=== PATIENT | female | born 1990 | race African-American/Black ===

== ENCOUNTER 2016-11-24 09:07 | Emergency (ER) | payer SELFPAY ==
[2016-11-24 09:14] VITALS: BP 109/73
--- NOTE | 2016-11-24 09:45 | ER Document Report ---
ED Neck/Back Problem - General Chief Complaint: Back Pain Stated Complaint: FELL/LOWER BACK PAIN Notes: Patient is complaining of pain in the region of her sacrum since she slipped on wet steps, falling onto her buttocks, this morning. She is able to move her legs and walk, but it's extremely painful to do so. Does not have any neurologic deficits such as bladder or bowel control problems. Denies any other injuries. TRAVEL OUTSIDE OF THE [place] IN LAST 30 DAYS: No - Related Data Allergies/Adverse Reactions: ibuprofen [Ibuprofen] Allergy (Severe, Verified 11/24/16 09:11) Anaphylaxis Penicillins Allergy (Severe, Verified 11/24/16 09:11) Anaphylaxis tramadol [Tramadol] Allergy (Severe, Verified 11/24/16 09:11) Anaphylaxis metoclopramide HCl [From Reglan] Adverse Reaction (Severe, Verified 11/24/16 09: 11) Hives nitrofurantoin macrocrystalline [From Macrobid] Adverse Reaction (Severe, Verified 11/24/16 09:11) Hives prochlorperazine edisylate [From Compazine] Adverse Reaction (Severe, Verified 11/24/16 09:11) Hives prochlorperazine maleate [From Compazine] Adverse Reaction (Severe, Verified 09:11) Hives ceftriaxone sodium [From Rocephin] Adverse Reaction (Intermediate, Verified 09:11) Hives cephalexin monohydrate [From Keflex] Adverse Reaction (Intermediate, Verified 09:11) Hives droperidol [Droperidol] Adverse Reaction (Intermediate, Verified 11/24/16 09:11) Generalized Itching ketorolac tromethamine [From Toradol] Adverse Reaction (Intermediate, Verified 11/24/16 09:11) Generalized rash ondansetron HCl [From Zofran] Adverse Reaction (Intermediate, Verified 11/24/16 09:11) Hives sulfamethoxazole [From Septra] Adverse Reaction (Intermediate, Verified 09:11) Hives trimethoprim [From Septra] Adverse Reaction (Intermediate, Verified 11/24/16 09: 11) Hives Past Medical History - Social History Smoking Status: Former Smoker Chew tobacco use (# tins/day): No Frequency of alcohol use: None Drug Abuse: None Family History: Reviewed & Not Pertinent, Arthritis, CAD, DM, Hyperlipidemia, Hypertension, Malignancy Patient has suicidal ideation: No Patient has homicidal ideation: No Pulmonary Medical History: Reports: Hx Asthma Neurological Medical History: Reports: Hx Migraine Renal/ Medical History: Reports: Hx Kidney Stones, Hx Ovarian Cysts GI Medical History: Reports: Hx Gastroesophageal Reflux Disease - during Musculoskeltal Medical History: Reports Hx Musculoskeletal Trauma Psychiatric Medical History: Reports: Hx Bipolar Disorder, Hx Depression Past Surgical History: Reports: Hx Section - x2, Hx Cholecystectomy - Immunizations Immunizations up to date: Yes Hx Diphtheria, Pertussis, Tetanus Vaccination: Yes - UTD Review of Systems - Review of Systems Constitutional: denies: Fever Cardiovascular: denies: Chest pain Respiratory: denies: Short of breath Gastrointestinal: denies: Abdominal pain Musculoskeletal: See HPI, Back pain - Primarily at the sacrum. Neurological/Psychological: No symptoms reported, See HPI Physical Exam - Vital signs Vitals: Temp Pulse Resp BP Pulse Ox 98.3 F 98 18 109/73 100 11/24/16 09:12 11/24/16 09:12 11/24/16 09:12 11/24/16 09:12 11/24/16 09:12 Interpretation: Normal - Notes Notes: PHYSICAL EXAMINATION: GENERAL: Well-appearing, in no acute distress. Walks bent over some, as if she is having pain. HEAD: Atraumatic, normocephalic. NECK: Normal range of motion, supple. LUNGS: Breath sounds clear and equal bilaterally. HEART: Regular rate and rhythm without murmurs. ABDOMEN: Soft, nontender. No guarding or rebound. BACK: No tenderness throughout entire back. Extremely tender across the region of the sacrum. No visible bruising. EXTREMITIES: Normal range of motion without pain. NEUROLOGICAL: Normal speech. Normal sensory, motor, and reflex exams. Awake, alert, and oriented x3. Cranial nerves normal. PSYCH: Normal mood, normal affect. SKIN: Warm, dry, no rashes. Course - Re-evaluation Re-evalutation: 11/24/16 10:23 Review of patient's visits to this emergency department show that she has been here 26 times in the past 12 months and 15 times in the year 2014. I advised the patient that she is a young healthy individual and should not require this many visits to the emergency department. I advised her that I would not provide her with any controlled substances for pain control now or in the future unless she has an objective emergency medical condition. I told her that would be the policy of this department with regard to her treatment in the future by all of the providers: She would receive an appropriate medical screening examination to rule out an emergency medical condition, but not receive any narcotic pain medications in the future without objective findings to indicate the need for them. - Vital Signs Vital signs: Temp Pulse Resp BP Pulse Ox 98.3 F 98 18 109/73 100 11/24/16 09:12 11/24/16 09:12 11/24/16 09:12 11/24/16 09:12 11/24/16 09:12 - Diagnostic Test Radiology results interpreted by me: 11/24/16 10:10 X-ray of the sacrum and coccyx are normal, no fractures. Discharge - Discharge Clinical Impression: Contusion of sacrum Qualifiers: Encounter type: initial encounter Qualified Code(s): S30.0XXA - Contusion of lower back and pelvis, initial encounter Contusion of coccyx Qualifiers: Encounter type: initial encounter Qualified Code(s): S30.0XXA - Contusion of lower back and pelvis, initial encounter Condition: Stable Disposition: HOME, SELF-CARE Additional Instructions: LOW BACK PAIN: Three out of every four people will have an episode of disabling back pain during their lifetime. Most commonly the pain is due to straining of the muscles and ligaments in the low back. Usual treatment includes: (1) Rest on a firm surface. Avoid lying on your stomach. (2) Ice pack the painful area. After a few days, gentle heat may be used intermittently to relax the area, or ice packs can be continued. (3) Medication may be needed -- muscle relaxers and antiinflammatory medicines are commonly used. (4) As the back improves, exercises are prescribed to strengthen the back and abdominal muscles. Your doctor will advise you on the proper care for your back at each stage in your recovery. You may be better in a few days -- or healing may take several weeks. If new symptoms of a "herniated disc" (radiation of pain, numbness, or tingling down the back of the leg or weakness in the leg) occur, you should be re-examined. Further testing may be necessary. Coccyx Injury Your painful tailbone is due to an injury to the `coccyx', the bone at the end of the spine. While quite painful, this injury isn't serious. In fact, it' s really not important whether the bone is fractured or not -- the treatment is the same. In general, this injury is treated by cold-packing the area and resting for a few days. Once you are active again, you may find that a `donut' seat cushion (often used after delivering a baby) helps you sit more comfortably. Avoid constipation by getting lots of fiber. Expect about three or four weeks before you are painfree. You should call your doctor if the pain becomes severe, or if you fail to improve as expected. ICE PACKS: Apply ice packs frequently against the painful area. Many different schedules are recommended, such as "20 minutes on, 20 minutes off" or "one hour ice, two hours rest." If you need to work, you may need to go longer between ice treatments. You should plan to have the area ice packed AT LEAST one fourth of the time. The ice should be applied over the wrap, tape, or splint, or over a layer of cloth -- not directly against the skin. Some ice bags have a built-in cloth and can be put directly on the skin. WARM PACKS: After approximately two days, apply gentle heat (such as a heating pad or hot water bottle) for about 20 to 30 minutes about every two hours -- at least four times daily. Warmth and elevation will help you make a more rapid recovery , and will ease the pain considerably. Do not use HOT heat, and never apply heat for longer than 30 minutes. The continuous heat can invisibly damage skin and muscles -- even when no burn is seen on the surface. Damaged muscles can make you MORE sore. USE OF ACETAMINOPHEN (Tylenol): Acetaminophen may be taken for pain relief or fever control. It's much safer than aspirin, offering a wider range of "safe" dosages. It is safe during . Some brand names are Tylenol, Panadol, Datril, Anacin 3, Tempra, and Liquiprin. Acetaminophen can be repeated every four hours. The following are maximum recommended dosages: WEIGHT Dose Drops Elixir Chewable( 80mg) (LBS.) drprs=droppers tsp=teaspoon >89 pounds or adults 650 mg to 900 mg Acetaminophen can be repeated every four hours. Maximum dose not to exceed 4000 mg a day. These maximum recommended dosages are slightly higher than the dosages written on the product container, but these dosages are very safe and below the toxic dosage for acetaminophen. FOLLOW-UP CARE: If you have been referred to a physician for follow-up care, call the physician s office for an appointment as you were instructed or within the next two days. If you experience worsening or a significant change in your symptoms, notify the physician immediately or return to the Emergency Department at any time for re-evaluation. Forms: Return to Work
== END 2016-11-24 10:20 | disposition home or self-care (01) ==
LOC: ER 09:07
DX: S30.0XXA Contusion of lower back and pelvis, initial encounter (principal); M54.9 Dorsalgia, unspecified; M54.5 Low back pain; W19.XXXA Unspecified fall, initial encounter; Z87.891 Personal history of nicotine dependence
CPT/HCPCS: 72220; 99283

== ENCOUNTER 2017-03-31 15:29 | Emergency (ER) | payer SELFPAY ==
[2017-03-31] MEDS ORDERED: ONDANSETRON 4 MG TAB.RAPDIS PO ONE (16:10)
[2017-03-31] MEDS ORDERED: PROMETHAZINE HCL 25 MG TABLET PO ONE (16:10)
--- NOTE | 2017-03-31 16:15 | ER Document Report ---
ED Medical Screen (RME) - General Chief Complaint: OB Problem (<20wks) Stated Complaint: ABDOMINAL PAIN Time Seen by Provider: 03/31/17 16:10 Notes: Patient is complaining of pelvic cramping and spotting for the past couple of days. She is done a home test last week and all 3 of them were positive. G3. She has been having nausea and vomiting for about 4 days. Not aware of any fever. UTI symptoms. TRAVEL OUTSIDE OF THE [place] IN LAST 30 DAYS: No - Related Data Allergies/Adverse Reactions: ibuprofen [Ibuprofen] Allergy (Severe, Verified 11/24/16 09:11) Anaphylaxis Penicillins Allergy (Severe, Verified 11/24/16 09:11) Anaphylaxis tramadol [Tramadol] Allergy (Severe, Verified 11/24/16 09:11) Anaphylaxis metoclopramide HCl [From Reglan] Adverse Reaction (Severe, Verified 11/24/16 09: 11) Hives nitrofurantoin macrocrystalline [From Macrobid] Adverse Reaction (Severe, Verified 11/24/16 09:11) Hives prochlorperazine edisylate [From Compazine] Adverse Reaction (Severe, Verified 11/24/16 09:11) Hives prochlorperazine maleate [From Compazine] Adverse Reaction (Severe, Verified 09:11) Hives ceftriaxone sodium [From Rocephin] Adverse Reaction (Intermediate, Verified 09:11) Hives cephalexin monohydrate [From Keflex] Adverse Reaction (Intermediate, Verified 09:11) Hives droperidol [Droperidol] Adverse Reaction (Intermediate, Verified 11/24/16 09:11) Generalized Itching ketorolac tromethamine [From Toradol] Adverse Reaction (Intermediate, Verified 11/24/16 09:11) Generalized rash ondansetron HCl [From Zofran] Adverse Reaction (Intermediate, Verified 11/24/16 09:11) Hives sulfamethoxazole [From Septra] Adverse Reaction (Intermediate, Verified 09:11) Hives trimethoprim [From Septra] Adverse Reaction (Intermediate, Verified 11/24/16 09: 11) Hives Past Medical History Pulmonary Medical History: Reports: Hx Asthma Neurological Medical History: Reports: Hx Migraine Renal/ Medical History: Reports: Hx Kidney Stones, Hx Ovarian Cysts. Denies: Hx Peritoneal Dialysis GI Medical History: Reports: Hx Gastroesophageal Reflux Disease - during Musculoskeltal Medical History: Reports Hx Musculoskeletal Trauma Psychiatric Medical History: Reports: Hx Bipolar Disorder, Hx Depression Past Surgical History: Reports: Hx Section - x2, Hx Cholecystectomy - Immunizations Immunizations up to date: Yes Hx Diphtheria, Pertussis, Tetanus Vaccination: Yes - UTD Physical Exam - Vital signs Vitals: Temp Pulse Resp BP Pulse Ox 99.5 F 77 18 116/49 L 100 03/31/17 15:34 03/31/17 15:34 03/31/17 15:34 03/31/17 15:34 03/31/17 15:34 Course - Vital Signs Vital signs: Temp Pulse Resp BP Pulse Ox 99.5 F 77 18 116/49 L 100 03/31/17 15:34 03/31/17 15:34 03/31/17 15:34 03/31/17 15:34 03/31/17 15:34
[2017-03-31 16:48] LABS: ABSOLUTE EOSINOPHILS # (AUTO) 0.3 10^3/uL (0.0-0.6); ABSOLUTE LYMPHOCYTES (AUTO) 1.5 10^3/uL (0.5-4.7); ABSOLUTE MONOCYTES (AUTO) 0.4 10^3/uL (0.1-1.4); ABSOLUTE NEUT (AUTO) 3.1 10^3/uL (1.7-8.2); BASOPHILS % (AUTO) 0.9 % (0-2); EOSINOPHILS % (AUTO) 6.3 % (0-6); HEMATOCRIT 33.1 % (36.0-47.0); HEMOGLOBIN 10.5 g/dL (12.0-15.5); HGB HCT DIFFERENCE -1.6; LYMPHOCYTES % (AUTO) 28.3 % (13-45); MEAN CORPUSCULAR HEMOGLOBIN 22.7 pg (27.0-33.4); MEAN CORPUSCULAR HGB CONC 31.6 g/dL (32.0-36.0); MEAN CORPUSCULAR VOLUME 72 fl (80-97); MONOCYTES % (AUTO) 7.6 % (3-13); RED CELL DISTRIBUTION WIDTH 20.8 % (11.5-14.0); SEGMENTED NEUTROPHILS % (AUTO) 56.9 % (42-78); WHITE BLOOD COUNT 5.4 10^3/uL (4.0-10.5)
--- NOTE | 2017-03-31 17:01 | ER Document Report ---
ED General - General Chief Complaint: OB Problem (<20wks) Stated Complaint: ABDOMINAL PAIN Time Seen by Provider: 03/31/17 16:10 Mode of Arrival: Ambulatory Information source: Patient Notes: 26-year-old female 3 para 2 who has had 3 positive tests at home presents with complaints of vaginal spotting and concerns for . Patient denies any fevers or chills admits to mild nausea. She denies any heavy clotting. Patient notes she was in [place] [facility] up until 6 weeks ago TRAVEL OUTSIDE OF THE [place] IN LAST 30 DAYS: No - HPI Onset: Other Onset/Duration: Sudden Quality of pain: Cramping Severity: Mild Pain Level: 1 Associated symptoms: Other Exacerbated by: Denies Relieved by: Denies Similar symptoms previously: Yes Recently seen / treated by doctor: Yes - Related Data Allergies/Adverse Reactions: ibuprofen [Ibuprofen] Allergy (Severe, Verified 03/31/17 16:18) Anaphylaxis Penicillins Allergy (Severe, Verified 03/31/17 16:18) Anaphylaxis tramadol [Tramadol] Allergy (Severe, Verified 03/31/17 16:18) Anaphylaxis metoclopramide HCl [From Reglan] Adverse Reaction (Severe, Verified 03/31/17 16: 18) Hives nitrofurantoin macrocrystalline [From Macrobid] Adverse Reaction (Severe, Verified 03/31/17 16:18) Hives ceftriaxone sodium [From Rocephin] Adverse Reaction (Intermediate, Verified 01/10 16:18) Hives cephalexin monohydrate [From Keflex] Adverse Reaction (Intermediate, Verified 16:18) Hives droperidol [Droperidol] Adverse Reaction (Intermediate, Verified 03/31/17 16:18) Generalized Itching ketorolac tromethamine [From Toradol] Adverse Reaction (Intermediate, Verified 03/31/17 16:18) Generalized rash ondansetron HCl [From Zofran] Adverse Reaction (Intermediate, Verified 03/31/17 16:18) Hives sulfamethoxazole [From Septra] Adverse Reaction (Intermediate, Verified 16:18) Hives trimethoprim [From Septra] Adverse Reaction (Intermediate, Verified 03/31/17 16: 18) Hives Past Medical History - General Last Menstrual Period: 02/13/17 - Social History Smoking Status: Current Every Day Smoker Cigarette use (# per day): Yes Chew tobacco use (# tins/day): No Smoking Education Provided: Yes - Patient counselled regarding cessation for 4 minutes Frequency of alcohol use: None Drug Abuse: None Family History: Reviewed & Not Pertinent, Arthritis, CAD, DM, Hyperlipidemia, Hypertension, Malignancy Patient has suicidal ideation: No Patient has homicidal ideation: No Pulmonary Medical History: Reports: Hx Asthma Neurological Medical History: Reports: Hx Migraine Renal/ Medical History: Reports: Hx Kidney Stones, Hx Ovarian Cysts. Denies: Hx Peritoneal Dialysis GI Medical History: Reports: Hx Gastroesophageal Reflux Disease - during Musculoskeltal Medical History: Reports Hx Musculoskeletal Trauma Psychiatric Medical History: Reports: Hx Bipolar Disorder, Hx Depression Past Surgical History: Reports: Hx Section - x2, Hx Cholecystectomy - Immunizations Immunizations up to date: Yes Hx Diphtheria, Pertussis, Tetanus Vaccination: Yes - UTD Review of Systems - Review of Systems Notes: REVIEW OF SYSTEMS: CONSTITUTIONAL : Denies fever, chills, or sweats. Denies recent illness. EENT: Denies eye, ear, throat, or mouth pain or symptoms. Denies nasal or sinus congestion or discharge. Denies throat, tongue, or mouth swelling or difficulty swallowing. CARDIOVASCULAR: Denies chest pain. Denies palpitations or racing or irregular heart beat. Denies ankle edema. RESPIRATORY: Denies cough, cold, or chest congestion. Denies shortness of breath, difficulty breathing, or wheezing. GASTROINTESTINAL: Denies abdominal pain or distention. Denies nausea, vomiting , or diarrhea. Denies blood in vomitus, stools, or per rectum. Denies black, tarry stools. Denies constipation. GENITOURINARY: Denies difficulty urinating, painful urination, burning, frequency, blood in urine, or discharge. FEMALE GENITOURINARY: Admits to vaginal spotting MUSCULOSKELETAL: Denies back or neck pain or stiffness. Denies joint pain or swelling. SKIN: Denies rash, lesions or sores. HEMATOLOGIC : Denies easy bruising or bleeding. LYMPHATIC: Denies swollen, enlarged glands. NEUROLOGICAL: Denies confusion or altered mental status. Denies passing out or loss of consciousness. Denies dizziness or lightheadedness. Denies headache. Denies weakness or paralysis or loss of use of either side. Denies problems with gait or speech. Denies sensory loss, numbness, or tingling. Denies seizures. PSYCHIATRIC: Denies anxiety or stress. Denies depression, suicidal ideation, or homicidal ideation. ALL OTHER SYSTEMS REVIEWED AND NEGATIVE. PHYSICAL EXAMINATION: GENERAL: Well-appearing, well-nourished and in no acute distress. HEAD: Atraumatic, normocephalic. EYES: Pupils equal round and reactive to light, extraocular movements intact, conjunctiva are normal. ENT: Nares patent, oropharynx clear without exudates. Moist mucous membranes. NECK: Normal range of motion, supple without lymphadenopathy LUNGS: Breath sounds clear to auscultation bilaterally and equal. No wheezes rales or rhonchi. HEART: Regular rate and rhythm without murmurs ABDOMEN: Soft, nontender, nondistended abdomen. No guarding, no rebound. No masses appreciated. Female : deferred Musculoskeletal: Normal range of motion, no pitting or edema. No cyanosis. NEUROLOGICAL: Cranial nerves grossly intact. Normal speech, normal gait. Normal sensory, motor exams PSYCH: Normal mood, normal affect. SKIN: Warm, Dry, normal turgor, no rashes or lesions noted. Dictation was performed using [employer] voice recognition software Physical Exam - Vital signs Vitals: Temp Pulse Resp BP Pulse Ox 99.5 F 77 18 116/49 L 100 03/31/17 15:34 03/31/17 15:34 03/31/17 15:34 03/31/17 15:34 03/31/17 15:34 Course - Re-evaluation Re-evalutation: 03/31/17 17:35 Physical examination noted no significant abnormality, lab work appears normal at this time. Patient otherwise looks well and appears to want confirmation of her . Report was handed to the patient she will be started on prenatals. Patient otherwise in no distress has been given smoking cessation instructions After performing a Medical Screening Examination, I estimate there is LOW risk for ACUTE APPENDICITIS, BOWEL OBSTRUCTION, ACUTE CHOLECYSTITIS, PERFORATED DIVERTICULITIS, INCARCERATED HERNIA, PANCREATITIS, PELVIC INFLAMMATORY DISEASE, PERFORATED ULCER, ECTOPIC , or TUBO-OVARIAN ABSCESS, thus I consider the discharge disposition reasonable. Also, there is no evidence or peritonitis , sepsis, or toxicity. I have reevaluated this patient multiple times and no significant life threatening changes are noted. The patient and I have discussed the diagnosis and risks, and we agree with discharging home with close follow-up with the understanding that symptoms and presentations can change. We also discussed returning to the Emergency Department immediately if new or worsening symptoms occur. We have discussed the symptoms which are most concerning (e.g., bloody stool, fever, changing or worsening pain, vomiting) that necessitate immediate return. - Vital Signs Vital signs: Temp Pulse Resp BP Pulse Ox 99.5 F 77 18 116/49 L 100 03/31/17 15:34 03/31/17 15:34 03/31/17 15:34 03/31/17 15:34 03/31/17 15:34 - Laboratory Result Diagrams: 03/31/17 16:28 Laboratory results interpreted by me: 03/31/17 16:28 Hgb 10.5 L Hct 33.1 L MCV 72 L MCH 22.7 L MCHC 31.6 L RDW 20.8 H Eosinophils % 6.3 H - Diagnostic Test Radiology reviewed: Image reviewed, Reports reviewed - 6 week Discharge - Discharge Clinical Impression: Encounter for smoking cessation counseling Qualifiers: Weeks of gestation: 24 weeks Qualified Code(s): Z3A.24 - 24 weeks gestation of Condition: Stable Disposition: HOME, SELF-CARE Instructions: Bleeding During Early ([facility]) Prescriptions: Pnv No.122/Iron/Folic Acid [ Multi Tablet] 1 each PO DAILY #30 tablet Referrals: BAKARI GREER MD [Primary Care Provider] - Follow up tomorrow
--- NOTE | 2017-03-31 17:25 | RADIOLOGY REPORT (SQ) ---
EXAM DESCRIPTION: U/S OB TRANSVAGINAL W/O DOP COMPLETED DATE/TIME: 03/31/2017 5:03 pm REASON FOR STUDY: Pelvic cramp, spotting 2 days, pos preg test x 3 COMPARISON: None. TECHNIQUE: Transvaginal static and realtime grayscale images acquired of the pelvis. Additional donato cted spectral and color Doppler images recorded. All images stored on PACs. bHCG: Not available. LIMITATIONS: Body habitus FINDINGS: FETUS: Living intrauterine . EGA: 6 weeks, 0 days EDSON: 11/24/2017 FHR: 101 beats per minute. SUBCHORIONIC BLEED: No. SIZE OF BLEED: Not applicable. UTERUS: No masses. No anomalies. CERVICAL LENGTH: 3.5 cm Closed. RIGHT ADNEXA: Ovary not identified. No adnexal free fluid. No adnexal masses. LEFT ADNEXA: Normal ovary with normal vascular flow. No adnexal free fluid. No adnexal masses. FREE FLUID: None. OTHER: No other significant finding. IMPRESSION: LIVING INTRAUTERINE . EGA 6 weeks, 0 days Trimester of : First - 0 to 13 weeks. TECHNICAL DOCUMENTATION: JOB ID: [id number] [employer]- All Rights Reserved
[2017-03-31 17:47] VITALS: BP 114/56
== END 2017-03-31 17:45 | disposition home or self-care (01) ==
LOC: ER 15:29
DX: R10.9 Unspecified abdominal pain (principal); R11.0 Nausea; Z3A.24 24 weeks gestation of pregnancy; F17.210 Nicotine dependence, cigarettes, uncomplicated
CPT/HCPCS: 36415; 76817; 84702; 85025; 86900; 86901; 99284; 99406

== ENCOUNTER 2017-04-10 16:21 | Emergency (ER) | payer SELFPAY ==
[2017-04-10 16:43] VITALS: BP 113/50
== END 2017-04-10 18:15 | disposition left against medical advice (07) ==
LOC: ER 16:21
DX: Z53.21 Procedure and treatment not carried out due to patient leaving prior to being seen by health care provider (principal)

== ENCOUNTER 2017-04-14 05:46 | Emergency (ER) | payer SELFPAY ==
[2017-04-14 05:58] VITALS: BP 134/77
[2017-04-14] MEDS ORDERED: ACETAMINOPHEN 325 MG TABLET PO ONE (06:24)
[2017-04-14] MEDS ORDERED: ONDANSETRON HCL INJ/PF 4 MG/2 ML SDV IV ONE (06:28)
--- NOTE | 2017-04-14 06:28 | ER Document Report ---
ED General - General Chief Complaint: Abdominal Pain Stated Complaint: ABDOMINAL PAIN Time Seen by Provider: 04/14/17 06:07 Mode of Arrival: Ambulatory Information source: Patient Notes: 26-year-old female history of narcotic abuse who was diagnosed with threatened miscarriage by myself approximately 2 weeks ago states that she was seen at [facility] a few days after that due to vaginal bleeding and was having a miscarriage complete. Patient notes she has had abdominal cramping since TRAVEL OUTSIDE OF THE [place] IN LAST 30 DAYS: No - HPI Onset: Other Onset/Duration: Persistent Quality of pain: Achy Severity: Mild Pain Level: 1 Associated symptoms: Nausea, Vomiting Exacerbated by: Denies Relieved by: Denies Similar symptoms previously: Yes Recently seen / treated by doctor: Yes - Related Data Allergies/Adverse Reactions: ibuprofen [Ibuprofen] Allergy (Severe, Verified 04/14/17 05:52) Anaphylaxis Penicillins Allergy (Severe, Verified 04/14/17 05:52) Anaphylaxis tramadol [Tramadol] Allergy (Severe, Verified 04/14/17 05:52) Anaphylaxis metoclopramide HCl [From Reglan] Adverse Reaction (Severe, Verified 04/14/17 05: 52) Hives nitrofurantoin macrocrystalline [From Macrobid] Adverse Reaction (Severe, Verified 04/14/17 05:52) Hives ceftriaxone sodium [From Rocephin] Adverse Reaction (Intermediate, Verified 05:52) Hives cephalexin monohydrate [From Keflex] Adverse Reaction (Intermediate, Verified 05:52) Hives droperidol [Droperidol] Adverse Reaction (Intermediate, Verified 04/14/17 05:52) Generalized Itching ketorolac tromethamine [From Toradol] Adverse Reaction (Intermediate, Verified 04/14/17 05:52) Generalized rash ondansetron HCl [From Zofran] Adverse Reaction (Intermediate, Verified 04/14/17 05:52) Hives sulfamethoxazole [From Septra] Adverse Reaction (Intermediate, Verified 05:52) Hives trimethoprim [From Septra] Adverse Reaction (Intermediate, Verified 04/14/17 05: 52) Hives Past Medical History - Social History Smoking Status: Current Every Day Smoker Cigarette use (# per day): Yes Chew tobacco use (# tins/day): No Smoking Education Provided: No Family History: Reviewed & Not Pertinent, Arthritis, CAD, DM, Hyperlipidemia, Hypertension, Malignancy Pulmonary Medical History: Reports: Hx Asthma Neurological Medical History: Reports: Hx Migraine Renal/ Medical History: Reports: Hx Kidney Stones, Hx Ovarian Cysts. Denies: Hx Peritoneal Dialysis GI Medical History: Reports: Hx Gastroesophageal Reflux Disease - during Musculoskeltal Medical History: Reports Hx Musculoskeletal Trauma Psychiatric Medical History: Reports: Hx Bipolar Disorder, Hx Depression Past Surgical History: Reports: Hx Section - x2, Hx Cholecystectomy - Immunizations Immunizations up to date: Yes Hx Diphtheria, Pertussis, Tetanus Vaccination: Yes - UTD Review of Systems - Review of Systems Notes: REVIEW OF SYSTEMS: CONSTITUTIONAL : Denies fever, chills, or sweats. Denies recent illness. EENT: Denies eye, ear, throat, or mouth pain or symptoms. Denies nasal or sinus congestion or discharge. Denies throat, tongue, or mouth swelling or difficulty swallowing. CARDIOVASCULAR: Denies chest pain. Denies palpitations or racing or irregular heart beat. Denies ankle edema. RESPIRATORY: Denies cough, cold, or chest congestion. Denies shortness of breath, difficulty breathing, or wheezing. GASTROINTESTINAL: admits to abd pain GENITOURINARY: Denies difficulty urinating, painful urination, burning, frequency, blood in urine, or discharge. FEMALE GENITOURINARY: denies any more vag bleeding at this time MUSCULOSKELETAL: Denies back or neck pain or stiffness. Denies joint pain or swelling. SKIN: Denies rash, lesions or sores. HEMATOLOGIC : Denies easy bruising or bleeding. LYMPHATIC: Denies swollen, enlarged glands. NEUROLOGICAL: Denies confusion or altered mental status. Denies passing out or loss of consciousness. Denies dizziness or lightheadedness. Denies headache. Denies weakness or paralysis or loss of use of either side. Denies problems with gait or speech. Denies sensory loss, numbness, or tingling. Denies seizures. PSYCHIATRIC: Denies anxiety or stress. Denies depression, suicidal ideation, or homicidal ideation. ALL OTHER SYSTEMS REVIEWED AND NEGATIVE. PHYSICAL EXAMINATION: GENERAL: Well-appearing, well-nourished and in no acute distress. HEAD: Atraumatic, normocephalic. EYES: Pupils equal round and reactive to light, extraocular movements intact, conjunctiva are normal. ENT: Nares patent, oropharynx clear without exudates. Moist mucous membranes. NECK: Normal range of motion, supple without lymphadenopathy LUNGS: Breath sounds clear to auscultation bilaterally and equal. No wheezes rales or rhonchi. HEART: Regular rate and rhythm without murmurs ABDOMEN: Soft, nontender, nondistended abdomen. No guarding, no rebound. No masses appreciated. Female : deferred Musculoskeletal: Normal range of motion, no pitting or edema. No cyanosis. NEUROLOGICAL: Cranial nerves grossly intact. Normal speech, normal gait. Normal sensory, motor exams PSYCH: Normal mood, normal affect. SKIN: Warm, Dry, normal turgor, no rashes or lesions noted. Dictation was performed using [employer] voice recognition software Physical Exam - Vital signs Vitals: Temp Pulse Resp BP Pulse Ox 98.9 F 96 20 134/77 H 99 04/14/17 05:52 04/14/17 05:52 04/14/17 05:52 04/14/17 05:52 04/14/17 05:52 Course - Re-evaluation Re-evalutation: 04/14/17 06:31 It is noted the patient had left without being seen a few days prior, after her father had dropped her off she had left and he returned looking for her stating that she was violating her probation by doing so Lab work imaging are pending at this time 04/14/17 07:23 Patient refuses all care, she demands her IV be taken out, refuses to go to ultrasound After performing a Medical Screening Examination, I spoke with the patient at length in regards to leaving the hospital against medical advice. I do not believe the patient should leave but the patient is alert oriented x4, understands the risks and benefits of staying and leaving including disability and . Pt understands that she can return at any time for further care and is more than welcome to do so. Pt verbalizes this understanding. - Vital Signs Vital signs: Temp Pulse Resp BP Pulse Ox 98.9 F 96 20 134/77 H 99 04/14/17 05:52 04/14/17 05:52 04/14/17 05:52 04/14/17 05:52 04/14/17 05:52 - Laboratory Result Diagrams: 04/14/17 06:25 04/14/17 06:25 Laboratory results interpreted by me: 04/14/17 06:25 WBC 11.6 H Hgb 10.3 L Hct 32.5 L MCV 72 L MCH 22.8 L MCHC 31.6 L RDW 19.8 H Absolute Neutrophils 8.8 H Discharge - Discharge Clinical Impression: Abdominal pain Qualifiers: Abdominal location: generalized Qualified Code(s): R10.84 - Generalized abdominal pain Disposition: AGAINST MEDICAL ADVICE Instructions: Abdominal Pain ([facility]) Additional Instructions: Follow up with your physician tomorrow for further care or return to the ED IMMEDIATELY if symptoms worsen or new concerns occur. If you cannot afford to follow up with your primary care physician a list of low cost clinics have been provided at the end of your discharge papers as well.
[2017-04-14 07:00] LABS: ABSOLUTE BASOPHILS # (AUTO) 0.1 10^3/uL (0.0-0.2); ABSOLUTE EOSINOPHILS # (AUTO) 0.4 10^3/uL (0.0-0.6); ABSOLUTE LYMPHOCYTES (AUTO) 1.8 10^3/uL (0.5-4.7); ABSOLUTE MONOCYTES (AUTO) 0.5 10^3/uL (0.1-1.4); ABSOLUTE NEUT (AUTO) 8.8 10^3/uL (1.7-8.2); BASOPHILS % (AUTO) 0.7 % (0-2); EOSINOPHILS % (AUTO) 3.5 % (0-6); HEMATOCRIT 32.5 % (36.0-47.0); HEMOGLOBIN 10.3 g/dL (12.0-15.5); HGB HCT DIFFERENCE -1.6; LYMPHOCYTES % (AUTO) 15.6 % (13-45); MEAN CORPUSCULAR HEMOGLOBIN 22.8 pg (27.0-33.4); MEAN CORPUSCULAR HGB CONC 31.6 g/dL (32.0-36.0); MEAN CORPUSCULAR VOLUME 72 fl (80-97); MONOCYTES % (AUTO) 4.2 % (3-13); RED BLOOD COUNT 4.51 10^6/uL (3.72-5.28); RED CELL DISTRIBUTION WIDTH 19.8 % (11.5-14.0); WHITE BLOOD COUNT 11.6 10^3/uL (4.0-10.5)
[2017-04-14] MEDS ORDERED: PROMETHAZINE HCL 25 MG TABLET PO ONE (07:02)
[2017-04-14 07:17] LABS: APPEARANCE,URINE SLIGHTLY-CLOUDY; BILIRUBIN,URINE NEGATIVE (NEGATIVE); GLUCOSE, URINE NEGATIVE (NEGATIVE); KETONES,URINE NEGATIVE (NEGATIVE); LEUKOCYTE ESTERASE,URINE NEGATIVE (NEGATIVE); NITRITE,URINE NEGATIVE (NEGATIVE); PROTEIN,URINE NEGATIVE (NEGATIVE); URINE SPECIFIC GRAVITY 1.031; UROBILINOGEN,URINE NEGATIVE mg/dL (<2.0)
[2017-04-14 07:26] LABS: URINE BARBITURATES SCREEN NEGATIVE; URINE METHADONE SCREEN NEGATIVE; URINE OPIATES LOW NEGATIVE; URINE PHENCYCLIDINE SCREEN NEGATIVE
== END 2017-04-14 07:28 | disposition left against medical advice (07) ==
LOC: ER 05:46
DX: O46.91 Antepartum hemorrhage, unspecified, first trimester (principal); O21.0 Mild hyperemesis gravidarum; Z3A.09 9 weeks gestation of pregnancy
CPT/HCPCS: 36415; 80307; 81001; 85025; 99284

== ENCOUNTER 2017-04-15 16:57 | Emergency (ER) | payer SELFPAY ==
[2017-04-15 17:11] VITALS: BP 116/53
[2017-04-15] MEDS ORDERED: DEXTROSE 5%-NORMAL SALINE 1,000 ML IV ONE (17:37)
[2017-04-15] MEDS ORDERED: PROMETHAZINE HCL 25 MG TABLET PO ONE (17:37)
[2017-04-15] MEDS ORDERED: PROMETHAZINE HCL 25 MG SUPP.RECT PR ONE (18:03)
[2017-04-15] MEDS ORDERED: DIPHENHYDRAMINE HCL 50 MG/ML VIAL IV ONE (18:03)
[2017-04-15 18:05] LABS: ABSOLUTE EOSINOPHILS # (AUTO) 0.5 10^3/uL (0.0-0.6); ABSOLUTE LYMPHOCYTES (AUTO) 1.8 10^3/uL (0.5-4.7); ABSOLUTE MONOCYTES (AUTO) 0.5 10^3/uL (0.1-1.4); ABSOLUTE NEUT (AUTO) 3.8 10^3/uL (1.7-8.2); BASOPHILS % (AUTO) 0.5 % (0-2); EOSINOPHILS % (AUTO) 7.8 % (0-6); HEMATOCRIT 32.8 % (36.0-47.0); HEMOGLOBIN 10.4 g/dL (12.0-15.5); HGB HCT DIFFERENCE -1.6; LYMPHOCYTES % (AUTO) 27.6 % (13-45); MEAN CORPUSCULAR HEMOGLOBIN 23.2 pg (27.0-33.4); MEAN CORPUSCULAR HGB CONC 31.7 g/dL (32.0-36.0); MEAN CORPUSCULAR VOLUME 73 fl (80-97); MONOCYTES % (AUTO) 7.3 % (3-13); RED BLOOD COUNT 4.48 10^6/uL (3.72-5.28); RED CELL DISTRIBUTION WIDTH 20.4 % (11.5-14.0); SEGMENTED NEUTROPHILS % (AUTO) 56.8 % (42-78); WHITE BLOOD COUNT 6.7 10^3/uL (4.0-10.5)
[2017-04-15 18:13] LABS: ANION GAP 9 (5-19); BLOOD UREA NITROGEN 9 mg/dL (7-20); CALCIUM 9.3 mg/dL (8.4-10.2); CARBON DIOXIDE 24 mmol/L (22-30); CHLORIDE 103 mmol/L (98-107); CREATININE RESULT 0.63 mg/dL (0.52-1.25); GLUCOSE 88 mg/dL (75-110); POTASSIUM 3.4 mmol/L (3.6-5.0); SODIUM 135.7 mmol/L (137-145)
--- NOTE | 2017-04-15 19:32 | ER Document Report ---
ED General - General Chief Complaint: Abdominal Pain Stated Complaint: ABDOMINAL PAIN Time Seen by Provider: 04/15/17 17:34 Mode of Arrival: Ambulatory Information source: Patient Notes: 26-year-old female with a history of substance abuse who is in her first trimester that has been experiencing vaginal bleeding and cramping with a recent ultrasound showing an intrauterine . Patient reports being evaluated at [facility] for miscarriage. Patient presents to the emergency room today complaining of nausea, vomiting and abdominal cramping. Patient states that she is allergic to both Reglan and Zofran. TRAVEL OUTSIDE OF THE [place] IN LAST 30 DAYS: No - HPI Onset: Last week Onset/Duration: Gradual Quality of pain: Dull Severity: Severe Pain Level: 5 Associated symptoms: Nausea, Vomiting. denies: Fever Exacerbated by: Denies Relieved by: Denies Similar symptoms previously: Yes Recently seen / treated by doctor: Yes - Related Data Allergies/Adverse Reactions: ibuprofen [Ibuprofen] Allergy (Severe, Verified 04/15/17 17:23) Anaphylaxis Penicillins Allergy (Severe, Verified 04/15/17 17:23) Anaphylaxis tramadol [Tramadol] Allergy (Severe, Verified 04/15/17 17:23) Anaphylaxis metoclopramide HCl [From Reglan] Adverse Reaction (Severe, Verified 04/15/17 17: 23) Hives nitrofurantoin macrocrystalline [From Macrobid] Adverse Reaction (Severe, Verified 04/15/17 17:23) Hives ceftriaxone sodium [From Rocephin] Adverse Reaction (Intermediate, Verified 17:23) Hives cephalexin monohydrate [From Keflex] Adverse Reaction (Intermediate, Verified 17:23) Hives droperidol [Droperidol] Adverse Reaction (Intermediate, Verified 04/15/17 17:23) Generalized Itching ketorolac tromethamine [From Toradol] Adverse Reaction (Intermediate, Verified 04/15/17 17:23) Generalized rash ondansetron HCl [From Zofran] Adverse Reaction (Intermediate, Verified 04/15/17 17:23) Hives sulfamethoxazole [From Septra] Adverse Reaction (Intermediate, Verified 17:23) Hives trimethoprim [From Septra] Adverse Reaction (Intermediate, Verified 04/15/17 17: 23) Hives Past Medical History - General Information source: Patient - Social History Smoking Status: Current Every Day Smoker Cigarette use (# per day): Yes Chew tobacco use (# tins/day): No Frequency of alcohol use: Occasional Drug Abuse: Other Lives with: Family Family History: Reviewed & Not Pertinent, Arthritis, CAD, DM, Hyperlipidemia, Hypertension, Malignancy Patient has suicidal ideation: No Patient has homicidal ideation: No Pulmonary Medical History: Reports: Hx Asthma Neurological Medical History: Reports: Hx Migraine Renal/ Medical History: Reports: Hx Kidney Stones, Hx Ovarian Cysts. Denies: Hx Peritoneal Dialysis GI Medical History: Reports: Hx Gastroesophageal Reflux Disease - during Musculoskeltal Medical History: Reports Hx Musculoskeletal Trauma Psychiatric Medical History: Reports: Hx Bipolar Disorder, Hx Depression Past Surgical History: Reports: Hx Section - x2, Hx Cholecystectomy - Immunizations Immunizations up to date: Yes Hx Diphtheria, Pertussis, Tetanus Vaccination: Yes - UTD Review of Systems - Review of Systems Constitutional: denies: Chills, Fever EENT: No symptoms reported Cardiovascular: No symptoms reported Respiratory: No symptoms reported Gastrointestinal: See HPI Genitourinary: See HPI Female Genitourinary: See HPI Musculoskeletal: No symptoms reported Skin: No symptoms reported Hematologic/Lymphatic: No symptoms reported Neurological/Psychological: No symptoms reported Physical Exam - Vital signs Vitals: Temp Pulse Resp BP Pulse Ox 99.1 F 78 20 116/53 L 99 04/15/17 17:09 04/15/17 17:09 04/15/17 17:09 04/15/17 17:09 04/15/17 17:09 Notes: Physical exam: GENERAL: 26-year-old female, alert and oriented 3, complaining of pain. HEAD: Atraumatic, normocephalic. EYES: Pupils equal round and reactive to light, cteric, conjunctiva are normal. ENT: Moist mucous membranes. NECK: Normal range of motion, supple LUNGS: Breath sounds clear to auscultation bilaterally and equal. No wheezes rales or rhonchi. HEART: Regular rate and rhythm without murmurs, rubs or gallops. ABDOMEN: Soft, normoactive bowel sounds. Patient refuses pelvic exam. EXTREMITIES: Normal range of motion, no pitting or edema. No clubbing or cyanosis. NEUROLOGICAL: Cranial nerves II through XII grossly intact. Normal speech, normal gait. PSYCH: Normal mood, normal affect. SKIN: Warm, Dry, normal turgor, no rashes or lesions noted. Course - Re-evaluation Re-evalutation: 04/15/17 19:40 The patient is refusing the ultrasound because she wants her something for pain first. I have offered Tylenol for the pain but she said it is not enough. I have explained to her in that we do not give anything stronger (i.e. narcotics). Patient states she absolutely refuses the ultrasound. Patient was not that cooperative for the physical exam either. For the nausea and vomiting I did give the patient IV fluids, IV Benadryl. I did explain to her that we do not give IV Phenergan or IM Phenergan anymore because of damage to the tissue and that we could give that medicine orally or suppository (she refuses). The patient is allergic to Reglan and Zofran and states she gets hives from both. 04/15/17 19:42 04/15/17 19:45 I reviewed the ultrasound from March 31 and there was evidence of an intrauterine . Patient's blood type is Rh+. 04/15/17 19:46 Review of the beta quant shows that the level is actually increased since the last time was here suggesting continued viability. It is impossible to know for sure without an ultrasound which the patient is continued to refuse. 04/16/17 00:30 Patient ultimately left against advice and walked out of the ER. She was not willing to have any further workup without narcotics. 04/16/17 00:31 - Vital Signs Vital signs: Temp Pulse Resp BP Pulse Ox 99.1 F 78 20 116/53 L 99 04/15/17 17:09 04/15/17 17:09 04/15/17 17:09 04/15/17 17:09 04/15/17 17:09 - Laboratory Result Diagrams: 04/15/17 17:50 04/15/17 17:50 Laboratory results interpreted by me: 04/15/17 04/15/17 17:50 17:50 Hgb 10.4 L Hct 32.8 L MCV 73 L MCH 23.2 L MCHC 31.7 L RDW 20.4 H Eosinophils % 7.8 H Sodium 135.7 L Potassium 3.4 L Beta HCG, Quant 836077.00 H Discharge - Discharge Clinical Impression: Early , Vomiting with nausea, Vaginal bleeding Condition: Stable Disposition: AGAINST MEDICAL ADVICE
== END 2017-04-15 19:45 | disposition left against medical advice (07) ==
LOC: ER 16:57
DX: O21.9 Vomiting of pregnancy, unspecified (principal); O26.891 Other specified pregnancy related conditions, first trimester; R10.9 Unspecified abdominal pain; O20.9 Hemorrhage in early pregnancy, unspecified; O99.331 Smoking (tobacco) complicating pregnancy, first trimester; F17.210 Nicotine dependence, cigarettes, uncomplicated; O99.511 Diseases of the respiratory system complicating pregnancy, first trimester; J45.909 Unspecified asthma, uncomplicated; Z3A.00 Weeks of gestation of pregnancy not specified; Z87.442 Personal history of urinary calculi; Z87.42 Personal history of other diseases of the female genital tract; Z87.19 Personal history of other diseases of the digestive system; Z88.8 Allergy status to other drugs, medicaments and biological substances; Z87.892 Personal history of anaphylaxis; Z88.6 Allergy status to analgesic agent; Z88.5 Allergy status to narcotic agent; Z88.0 Allergy status to penicillin; Z53.29 Procedure and treatment not carried out because of patient's decision for other reasons
CPT/HCPCS: 36415; 80048; 84702; 85025; 96374; 99283; J1200

== ENCOUNTER → 2017-05-17 | Outpatient (CLI) | payer OTHER ==
--- NOTE | 2017-05-17 15:26 | RADIOLOGY REPORT (SQ) ---
EXAM DESCRIPTION: U/S [id number] TRNABD 1GES W/ODOP COMPLETED DATE/TIME: 05/17/2017 3:07 pm REASON FOR STUDY: SIZE/DATES COMPARISON: 03/31/2017 TECHNIQUE: Transabdominal static and realtime grayscale images acquired of the pelvis. Additional se lected spectral and color Doppler images recorded. All images stored on PACs. bHCG: Not applicable. LIMITATIONS: None. FINDINGS: FETUS: Living intrauterine . EGA: 13 weeks 0 days EDSON: 11/22/2017 FHR: 158 beats per minute. SUBCHORIONIC BLEED: No. SIZE OF BLEED: Not applicable. UTERUS: No masses or anomalies. 12.1 x 10.6 x 10.9 cm. CERVICAL LENGTH: 4.5 cm. Closed. RIGHT ADNEXA: Ovary not seen. No adnexal free fluid. No adnexal masses. LEFT ADNEXA: Ovary not seen. No adnexal free fluid. No adnexal masses. FREE FLUID: None. OTHER: No other significant finding. IMPRESSION: There is a live intrauterine gestation of 13 weeks 0 days with an estimated date of deli very of 11/22/2017. Trimester of : 1st - 0 to 13 weeks. TECHNICAL DOCUMENTATION: JOB ID: [id number] [employer]- All Rights Reserved
== END ==
LOC: RAD 14:00
PROVIDERS: ATTEND Family Medicine
DX: Z34.91 Encounter for supervision of normal pregnancy, unspecified, first trimester (principal)
CPT/HCPCS: 76801

== ENCOUNTER 2017-06-01 20:40 | Emergency (ER) | payer SELFPAY ==
[2017-06-01] MEDS ORDERED: PROCHLORPERAZINE EDISYLATE INJ 10 MG/2 ML VIAL IV ONE (22:21)
[2017-06-01] MEDS ORDERED: FAMOTIDINE INJ/PF 20 MG/2 ML SDV IV ONE (22:21)
[2017-06-01] MEDS ORDERED: NORMAL SALINE 1000 ML 1,000 ML IV PRN (22:21)
--- NOTE | 2017-06-01 22:23 | ER Document Report ---
ED GI/ - General Chief Complaint: Nausea/Vomiting Stated Complaint: ABDOMINAL PAIN Time Seen by Provider: 06/01/17 22:11 Mode of Arrival: Ambulatory Information source: Patient TRAVEL OUTSIDE OF THE [place] IN LAST 30 DAYS: No - HPI Patient complains to provider of: Dysuria, Pelvic pain, , Vomiting Onset: Other - 2-3 days Timing/Duration: Persistent Quality of pain: Achy Severity at maximum: Moderate Severity in ED: Moderate Pain Level: 3 Location: Pelvis Associated symptoms: Chills, Nausea, Vomiting Notes: 06/01/17 22:22 Patient is a 26-year-old female who is a approximately 15 weeks at this time, being followed by the health department, presents to the emergency room today complaining of nausea and vomiting 2-3 days, with mild crampy lower abdominal pain, and pain in her low back as well, she denies any bleeding or abnormal discharge, no fever although she does have chills at times , no diarrhea, she does report burning sensation with urination, history of 2 previous C-sections due to failure to dilate, and cholecystectomy - Related Data Allergies/Adverse Reactions: ibuprofen [Ibuprofen] Allergy (Severe, Verified 04/15/17 17:23) Anaphylaxis Penicillins Allergy (Severe, Verified 04/15/17 17:23) Anaphylaxis tramadol [Tramadol] Allergy (Severe, Verified 04/15/17 17:23) Anaphylaxis metoclopramide HCl [From Reglan] Adverse Reaction (Severe, Verified 04/15/17 17: 23) Hives nitrofurantoin macrocrystalline [From Macrobid] Adverse Reaction (Severe, Verified 04/15/17 17:23) Hives ceftriaxone sodium [From Rocephin] Adverse Reaction (Intermediate, Verified 17:23) Hives cephalexin monohydrate [From Keflex] Adverse Reaction (Intermediate, Verified 17:23) Hives droperidol [Droperidol] Adverse Reaction (Intermediate, Verified 04/15/17 17:23) Generalized Itching ketorolac tromethamine [From Toradol] Adverse Reaction (Intermediate, Verified 04/15/17 17:23) Generalized rash ondansetron HCl [From Zofran] Adverse Reaction (Intermediate, Verified 04/15/17 17:23) Hives sulfamethoxazole [From Septra] Adverse Reaction (Intermediate, Verified 17:23) Hives trimethoprim [From Septra] Adverse Reaction (Intermediate, Verified 04/15/17 17: 23) Hives prochlorperazine [From Compazine] Adverse Reaction (Verified 06/01/17 22:59) Hives Past Medical History - General Information source: Patient - Social History Smoking Status: Current Every Day Smoker Family History: Reviewed & Not Pertinent, Arthritis, CAD, DM, Hyperlipidemia, Hypertension, Malignancy Patient has suicidal ideation: No Patient has homicidal ideation: No Pulmonary Medical History: Reports: Hx Asthma Neurological Medical History: Reports: Hx Migraine Renal/ Medical History: Reports: Hx Kidney Stones, Hx Ovarian Cysts. Denies: Hx Peritoneal Dialysis GI Medical History: Reports: Hx Gastroesophageal Reflux Disease - during Musculoskeltal Medical History: Reports Hx Musculoskeletal Trauma Psychiatric Medical History: Reports: Hx Bipolar Disorder, Hx Depression Past Surgical History: Reports: Hx Section - x2, Hx Cholecystectomy - Immunizations Immunizations up to date: Yes Hx Diphtheria, Pertussis, Tetanus Vaccination: Yes - UTD Review of Systems - Review of Systems Constitutional: No symptoms reported EENT: No symptoms reported Cardiovascular: No symptoms reported Respiratory: No symptoms reported Gastrointestinal: No symptoms reported Genitourinary: No symptoms reported Female Genitourinary: See HPI Musculoskeletal: No symptoms reported Skin: No symptoms reported Hematologic/Lymphatic: No symptoms reported Neurological/Psychological: No symptoms reported -: Yes All other systems reviewed and negative Physical Exam - Vital signs Vitals: Temp Pulse Resp BP Pulse Ox 98.3 F 96 18 131/76 H 99 06/01/17 21:02 06/01/17 21:02 06/01/17 21:02 06/01/17 21:02 06/01/17 21:02 Interpretation: Normal - General General appearance: Appears well, Alert - HEENT Head: Normocephalic, Atraumatic Eyes: Normal Pupils: PERRL - Respiratory Respiratory status: No respiratory distress Chest status: Nontender Breath sounds: Normal Chest palpation: Normal - Cardiovascular Rhythm: Regular Heart sounds: Normal auscultation Murmur: No - Abdominal Inspection: Normal Distension: No distension Bowel sounds: Normal Tenderness: Tender - Tenderness to palpate in suprapubic region, specifically over patient's scar Organomegaly: No organomegaly - Back Back: Normal, Nontender - Extremities General upper extremity: Normal inspection, Nontender, Normal color, Normal ROM , Normal temperature General lower extremity: Normal inspection, Nontender, Normal color, Normal ROM , Normal temperature, Normal weight bearing, Other - Law enforcement ankle bracelet noted on the left ankle. No: Chon's sign - Neurological Neuro grossly intact: Yes Cognition: Normal Orientation: AAOx4 Rico Coma Scale Eye Opening: Spontaneous [place] Coma Scale Verbal: Oriented Rico Coma Scale Motor: Obeys Commands [place] Coma Scale Total: 15 Speech: Normal Motor strength normal: LUE, RUE, LLE, RLE Sensory: Normal - Psychological Associated symptoms: Normal affect, Normal mood - Skin Skin Temperature: Warm Skin Moisture: Dry Skin Color: Normal Course - Re-evaluation Re-evalutation: 06/01/17 22:56 Patient has Reglan and Zofran listed as medications that she is allergic to, I ordered Compazine and Pepcid for control of her symptoms, she reported to the nurse that she does not want Pepcid and that she is also allergic to Compazine, she requested Benadryl for nausea, I explained to patient that Benadryl is not an appropriate medication to treat nausea and then I be more than happy to order her something for nausea, when I asked her which medication she can actually take for nausea without negative side effects she reported Phenergan, Phenergan has been ordered for her, although I have not seen any vomiting since she has been in the emergency room 06/01/17 23:22 Patient was offered p.o. Phenergan by the nurse which she also refused, she was then offered [place] Phenergan which she refused once again 06/01/17 23:43 Patient resting comfortably on stretcher, she has been on her cell phone throughout most of her visit, once again I have not seen any vomiting while in the emergency department, she is now asking for saltines and rick ladarius which she is being provided with, bedside ultrasound did confirm positive IUP with positive heart beat and positive movement, patient will be discharged with instructions for follow-up and advised to return if symptoms worsen - Vital Signs Vital signs: Temp Pulse Resp BP Pulse Ox 98.3 F 96 18 131/76 H 99 06/01/17 21:02 06/01/17 21:02 06/01/17 21:02 06/01/17 21:02 06/01/17 21:02 - Laboratory Result Diagrams: 06/01/17 22:26 06/01/17 22:26 Laboratory results interpreted by me: 06/01/17 06/01/17 06/01/17 22:26 22:26 22:28 Hgb 10.4 L Hct 31.4 L MCV 76 L MCH 24.9 L RDW 21.7 H Sodium 136.0 L Potassium 3.4 L Carbon Dioxide 20 L Glucose 71 L Total Protein 6.2 L Albumin 3.4 L Urine Ketones 80 H Urine Urobilinogen 2.0 H Procedures - Ultrasound/Bedside Ultrasound/Bedside Time completed: 23:45 Ultrasound: Other - Pelvic ultrasound reveals positive IUP with good movement and good heart rate Discharge - Discharge Clinical Impression: Qualifiers: Weeks of gestation: 15 weeks Qualified Code(s): Z3A.15 - 15 weeks gestation of Pelvic pain affecting Qualifiers: Trimester: second trimester Qualified Code(s): O26.892 - Other specified related conditions, second trimester; R10.2 - Pelvic and perineal pain ; R10.2 - Pelvic and perineal pain Condition: Stable Disposition: HOME, SELF-CARE Instructions: Antinausea Medication ([facility]), Pelvic Pain in ([facility]), ([facility]) Additional Instructions: Follow up with your primary care provider or CLINICAL UNIT COORDINATOR in one to 2 days. Return to the emergency room immediately if symptoms worsen or any additional concerns. Prescriptions: Promethazine HCl [Phenergan 25 mg Tablet] 25 - 50 mg PO ASDIR PRN #12 tablet PRN Reason: Promethazine HCl [Phenergan 25 mg Supp.rect] 1 supp TX Q6H #12 supp.rect
[2017-06-01] MEDS ORDERED: PROMETHAZINE HCL 25 MG TABLET PO ONE (22:56)
[2017-06-01 22:58] LABS: ALANINE AMINOTRANSFERASE 30 U/L (9-52); ALBUMIN 3.4 g/dL (3.5-5.0); ALKALINE PHOSPHATASE 53 U/L (38-126); ANION GAP 9 (5-19); ASPARTATE AMINO TRANSFERASE 17 U/L (14-36); BILIRUBIN,DIRECT 0.3 mg/dL (0.0-0.4); BILIRUBIN,TOTAL 0.5 mg/dL (0.2-1.3); BLOOD UREA NITROGEN 8 mg/dL (7-20); CALCIUM 8.7 mg/dL (8.4-10.2); CARBON DIOXIDE 20 mmol/L (22-30); CHLORIDE 107 mmol/L (98-107); CREATININE RESULT 0.52 mg/dL (0.52-1.25); GLUCOSE 71 mg/dL (75-110); LIPASE 43.2 U/L (23-300); POTASSIUM 3.4 mmol/L (3.6-5.0); TOTAL PROTEIN 6.2 g/dL (6.3-8.2)
[2017-06-01 23:01] LABS: ABSOLUTE BASOPHILS # (AUTO) 0.1 10^3/uL (0.0-0.2); ABSOLUTE EOSINOPHILS # (AUTO) 0.3 10^3/uL (0.0-0.6); ABSOLUTE LYMPHOCYTES (AUTO) 2.3 10^3/uL (0.5-4.7); ABSOLUTE MONOCYTES (AUTO) 0.5 10^3/uL (0.1-1.4); ABSOLUTE NEUT (AUTO) 5.8 10^3/uL (1.7-8.2); BASOPHILS % (AUTO) 0.7 % (0-2); EOSINOPHILS % (AUTO) 3.4 % (0-6); HEMATOCRIT 31.4 % (36.0-47.0); HEMOGLOBIN 10.4 g/dL (12.0-15.5); HGB HCT DIFFERENCE -0.2; LYMPHOCYTES % (AUTO) 25.3 % (13-45); MEAN CORPUSCULAR HEMOGLOBIN 24.9 pg (27.0-33.4); MEAN CORPUSCULAR HGB CONC 33.1 g/dL (32.0-36.0); MEAN CORPUSCULAR VOLUME 76 fl (80-97); MONOCYTES % (AUTO) 5.5 % (3-13); RED BLOOD COUNT 4.17 10^6/uL (3.72-5.28); RED CELL DISTRIBUTION WIDTH 21.7 % (11.5-14.0); SEGMENTED NEUTROPHILS % (AUTO) 65.1 % (42-78); WHITE BLOOD COUNT 8.9 10^3/uL (4.0-10.5)
[2017-06-01 23:02] LABS: APPEARANCE,URINE SLIGHTLY-CLOUDY; BILIRUBIN,URINE NEGATIVE (NEGATIVE); GLUCOSE, URINE NEGATIVE (NEGATIVE); KETONES,URINE 80 mg/dL (NEGATIVE); LEUKOCYTE ESTERASE,URINE NEGATIVE (NEGATIVE); NITRITE,URINE NEGATIVE (NEGATIVE); PROTEIN,URINE NEGATIVE (NEGATIVE); URINE SPECIFIC GRAVITY 1.029
[2017-06-02 00:06] VITALS: BP 126/74
== END 2017-06-02 00:04 | disposition home or self-care (01) ==
LOC: ER 20:40
DX: O26.892 Other specified pregnancy related conditions, second trimester (principal); R10.2 Pelvic and perineal pain; R11.2 Nausea with vomiting, unspecified; R10.9 Unspecified abdominal pain; R30.0 Dysuria; Z3A.15 15 weeks gestation of pregnancy
CPT/HCPCS: 99283; 96360; 36415; 87086; 83690; 85025; 80053; 81001; J7030; J0780; S0028

== ENCOUNTER 2017-06-11 17:11 | Emergency (ER) | payer MEDICAID ==
[2017-06-11 17:19] VITALS: BP 123/80
[2017-06-11] MEDS ORDERED: PREDNISONE 20 MG TABLET PO ONE (17:31)
[2017-06-11] MEDS ORDERED: DIPHENHYDRAMINE HCL 50 MG CAPSULE PO ONE (17:31)
--- NOTE | 2017-06-11 17:32 | ER Document Report ---
ED Medical Screen (RME) - General Chief Complaint: Allergic Reaction Stated Complaint: POSSIBLE ALLERGIC REACTION Time Seen by Provider: 06/11/17 17:31 Notes: Patient states she has a history of an allergic reaction to fish. She states she ate some chicken cooked and fish crease today and now her throat feels itchy. No significant shortness of breath. No drooling. TRAVEL OUTSIDE OF THE [place] IN LAST 30 DAYS: No - Related Data Allergies/Adverse Reactions: ibuprofen [Ibuprofen] Allergy (Severe, Verified 06/11/17 17:18) Anaphylaxis Penicillins Allergy (Severe, Verified 06/11/17 17:18) Anaphylaxis tramadol [Tramadol] Allergy (Severe, Verified 06/11/17 17:18) Anaphylaxis metoclopramide HCl [From Reglan] Adverse Reaction (Severe, Verified 06/11/17 17: 18) Hives nitrofurantoin macrocrystalline [From Macrobid] Adverse Reaction (Severe, Verified 06/11/17 17:18) Hives ceftriaxone sodium [From Rocephin] Adverse Reaction (Intermediate, Verified 17:18) Hives cephalexin monohydrate [From Keflex] Adverse Reaction (Intermediate, Verified 17:18) Hives droperidol [Droperidol] Adverse Reaction (Intermediate, Verified 06/11/17 17:18) Generalized Itching ketorolac tromethamine [From Toradol] Adverse Reaction (Intermediate, Verified 06/11/17 17:18) Generalized rash ondansetron HCl [From Zofran] Adverse Reaction (Intermediate, Verified 06/11/17 17:18) Hives sulfamethoxazole [From Septra] Adverse Reaction (Intermediate, Verified 17:18) Hives trimethoprim [From Septra] Adverse Reaction (Intermediate, Verified 06/11/17 17: 18) Hives prochlorperazine [From Compazine] Adverse Reaction (Verified 06/11/17 17:18) Hives Past Medical History Pulmonary Medical History: Reports: Hx Asthma Neurological Medical History: Reports: Hx Migraine Renal/ Medical History: Reports: Hx Kidney Stones, Hx Ovarian Cysts. Denies: Hx Peritoneal Dialysis GI Medical History: Reports: Hx Gastroesophageal Reflux Disease - during Musculoskeltal Medical History: Reports Hx Musculoskeletal Trauma Psychiatric Medical History: Reports: Hx Bipolar Disorder, Hx Depression Past Surgical History: Reports: Hx Section - x2, Hx Cholecystectomy - Immunizations Immunizations up to date: Yes Hx Diphtheria, Pertussis, Tetanus Vaccination: Yes - UTD Physical Exam - Vital signs Vitals: Temp Pulse Resp BP Pulse Ox 98.9 F 99 20 123/80 100 06/11/17 17:16 06/11/17 17:16 06/11/17 17:16 06/11/17 17:16 06/11/17 17:16 Course - Vital Signs Vital signs: Temp Pulse Resp BP Pulse Ox 98.9 F 99 20 123/80 100 06/11/17 17:16 06/11/17 17:16 06/11/17 17:16 06/11/17 17:16 06/11/17 17:16
[2017-06-11] MEDS ORDERED: DIPHENHYDRAMINE HCL 50 MG/ML VIAL IM ONE (17:39)
[2017-06-11] MEDS ORDERED: METHYLPREDNISOLONE INJ 125 MG/2 ML SDV IM ONE (17:39)
--- NOTE | 2017-06-11 19:22 | ER Document Report ---
ED Allergic Reaction - General Chief Complaint: Allergic Reaction Stated Complaint: POSSIBLE ALLERGIC REACTION Time Seen by Provider: 06/11/17 17:31 Mode of Arrival: Ambulatory Information source: Patient Notes: Patient states about 30 minutes before arrival she ate chicken that was cooked in fish grease. She states that she has had a previous allergic reaction to fish. She states that she began to feel her throat become "scratchy". She has had no trouble breathing or swallowing. She has not been lightheaded or dizzy. No sweating. She has not taken any medication to combat the allergic reaction. Symptoms have been moderate. They have been constant. Nothing makes them better or worse. She did there is no radiation of the symptoms. TRAVEL OUTSIDE OF THE [place] IN LAST 30 DAYS: No - Related Data Allergies/Adverse Reactions: ibuprofen [Ibuprofen] Allergy (Severe, Verified 06/11/17 17:18) Anaphylaxis Penicillins Allergy (Severe, Verified 06/11/17 17:18) Anaphylaxis tramadol [Tramadol] Allergy (Severe, Verified 06/11/17 17:18) Anaphylaxis metoclopramide HCl [From Reglan] Adverse Reaction (Severe, Verified 06/11/17 17: 18) Hives nitrofurantoin macrocrystalline [From Macrobid] Adverse Reaction (Severe, Verified 06/11/17 17:18) Hives ceftriaxone sodium [From Rocephin] Adverse Reaction (Intermediate, Verified 17:18) Hives cephalexin monohydrate [From Keflex] Adverse Reaction (Intermediate, Verified 17:18) Hives droperidol [Droperidol] Adverse Reaction (Intermediate, Verified 06/11/17 17:18) Generalized Itching ketorolac tromethamine [From Toradol] Adverse Reaction (Intermediate, Verified 06/11/17 17:18) Generalized rash ondansetron HCl [From Zofran] Adverse Reaction (Intermediate, Verified 06/11/17 17:18) Hives sulfamethoxazole [From Septra] Adverse Reaction (Intermediate, Verified 17:18) Hives trimethoprim [From Septra] Adverse Reaction (Intermediate, Verified 06/11/17 17: 18) Hives prochlorperazine [From Compazine] Adverse Reaction (Verified 06/11/17 17:18) Hives Past Medical History - General Information source: Patient - Social History Smoking Status: Current Every Day Smoker Chew tobacco use (# tins/day): No Frequency of alcohol use: None Drug Abuse: None Family History: Reviewed & Not Pertinent, Arthritis, CAD, DM, Hyperlipidemia, Hypertension, Malignancy Pulmonary Medical History: Reports: Hx Asthma Neurological Medical History: Reports: Hx Migraine Renal/ Medical History: Reports: Hx Kidney Stones, Hx Ovarian Cysts. Denies: Hx Peritoneal Dialysis GI Medical History: Reports: Hx Gastroesophageal Reflux Disease - during Musculoskeltal Medical History: Reports Hx Musculoskeletal Trauma Psychiatric Medical History: Reports: Hx Bipolar Disorder, Hx Depression Past Surgical History: Reports: Hx Section - x2, Hx Cholecystectomy - Immunizations Immunizations up to date: Yes Hx Diphtheria, Pertussis, Tetanus Vaccination: Yes - UTD Review of Systems - Review of Systems Constitutional: denies: Chills, Fever Cardiovascular: denies: Chest pain, Palpitations Respiratory: Cough. denies: Short of breath Physical Exam - Vital signs Vitals: Temp Pulse Resp BP Pulse Ox 98.9 F 99 20 123/80 100 06/11/17 17:16 06/11/17 17:16 06/11/17 17:16 06/11/17 17:16 06/11/17 17:16 Interpretation: Normal - General General appearance: Appears well, Alert - HEENT Head: Normocephalic, Atraumatic Eyes: Normal Pupils: PERRL Nasal: Normal Mouth/Lips: Normal Mucous membranes: Moist Pharynx: Normal, Other - No evidence of any intraoral edema.. No: Tonsillar hypertrophy, Uvular edema, Potential airway comprom. Neck: Normal - Respiratory Respiratory status: No respiratory distress Chest status: Nontender Breath sounds: Normal Chest palpation: Normal - Cardiovascular Rhythm: Regular Heart sounds: Normal auscultation Murmur: No - Abdominal Inspection: Normal Distension: No distension Bowel sounds: Normal Tenderness: Nontender Organomegaly: No organomegaly - Back Back: Normal, Nontender - Extremities General upper extremity: Normal inspection, Nontender, Normal color, Normal ROM , Normal temperature General lower extremity: Normal inspection, Nontender, Normal color, Normal ROM , Normal temperature, Normal weight bearing. No: Chon's sign - Neurological Neuro grossly intact: Yes Cognition: Normal Orientation: AAOx4 [place] Coma Scale Eye Opening: Spontaneous [place] Coma Scale Verbal: Oriented [place] Coma Scale Motor: Obeys Commands [place] Coma Scale Total: 15 Speech: Normal Motor strength normal: LUE, RUE, LLE, RLE Sensory: Normal - Psychological Associated symptoms: Normal affect, Normal mood - Skin Skin Temperature: Warm Skin Moisture: Dry Skin Color: Normal Course - Re-evaluation Re-evalutation: 06/11/17 19:19 Me and the nurse look for the patient for reassessment however the patient had left the emergency department without notifying any staff. The patient was called at home. I personally discussed discharge instructions with the patient. I told her that she should return to the emergency department so that we could prescribe her further medications as well as reevaluate her. She stated that she was not going to come back but that she would if she had any further problems. She states she was currently feeling better. - Vital Signs Vital signs: Temp Pulse Resp BP Pulse Ox 98.9 F 99 20 123/80 100 06/11/17 17:16 06/11/17 17:16 06/11/17 17:16 06/11/17 17:16 06/11/17 17:16 Discharge - Discharge Clinical Impression: Allergic reaction Disposition: AGAINST MEDICAL ADVICE Additional Instructions: Please follow-up with your primary care physician as soon as possible. If you have any further trouble with breathing or swallowing please seek medical attention immediately. You need to make sure you have an EpiPen with you at all times. If you do not have one please return to the emergency department or see your primary care provider so one can be prescribed to you.
== END 2017-06-11 19:21 | disposition left against medical advice (07) ==
LOC: ER 17:11
DX: T78.40XA Allergy, unspecified, initial encounter (principal); R09.89 Other specified symptoms and signs involving the circulatory and respiratory systems; X58.XXXA Exposure to other specified factors, initial encounter; J45.909 Unspecified asthma, uncomplicated; R05 Cough; F17.200 Nicotine dependence, unspecified, uncomplicated; Z87.892 Personal history of anaphylaxis; Z88.6 Allergy status to analgesic agent; Z88.0 Allergy status to penicillin; Z88.5 Allergy status to narcotic agent; Z53.20 Procedure and treatment not carried out because of patient's decision for unspecified reasons
CPT/HCPCS: 99281; 96372; 96374; J1200; J2930

== ENCOUNTER 2017-06-18 17:16 | Emergency (ER) | payer MEDICAID ==
[2017-06-18 17:25] VITALS: BP 134/68
== END 2017-06-18 19:40 | disposition left against medical advice (07) ==
LOC: ER 17:16
DX: Z53.21 Procedure and treatment not carried out due to patient leaving prior to being seen by health care provider (principal)

== ENCOUNTER 2017-06-20 19:33 | Emergency (ER) | payer MEDICAID ==
[2017-06-20 20:17] VITALS: BP 126/66
[2017-06-20 23:39] LABS: ABSOLUTE BASOPHILS # (AUTO) 0.1 10^3/uL (0.0-0.2); ABSOLUTE EOSINOPHILS # (AUTO) 0.3 10^3/uL (0.0-0.6); ABSOLUTE MONOCYTES (AUTO) 0.5 10^3/uL (0.1-1.4); ABSOLUTE NEUT (AUTO) 6.6 10^3/uL (1.7-8.2); BASOPHILS % (AUTO) 0.6 % (0-2); EOSINOPHILS % (AUTO) 3.5 % (0-6); HEMATOCRIT 30.5 % (36.0-47.0); HGB HCT DIFFERENCE -0.5; LYMPHOCYTES % (AUTO) 21.1 % (13-45); MEAN CORPUSCULAR HEMOGLOBIN 25.5 pg (27.0-33.4); MEAN CORPUSCULAR HGB CONC 32.7 g/dL (32.0-36.0); MEAN CORPUSCULAR VOLUME 78 fl (80-97); MONOCYTES % (AUTO) 5.4 % (3-13); RED BLOOD COUNT 3.92 10^6/uL (3.72-5.28); RED CELL DISTRIBUTION WIDTH 21.9 % (11.5-14.0); SEGMENTED NEUTROPHILS % (AUTO) 69.4 % (42-78); WHITE BLOOD COUNT 9.5 10^3/uL (4.0-10.5)
[2017-06-20 23:44] LABS: ALANINE AMINOTRANSFERASE 34 U/L (9-52); ALBUMIN 3.4 g/dL (3.5-5.0); ALKALINE PHOSPHATASE 52 U/L (38-126); ANION GAP 11 (5-19); ASPARTATE AMINO TRANSFERASE 19 U/L (14-36); BILIRUBIN,DIRECT 0.2 mg/dL (0.0-0.4); BILIRUBIN,TOTAL 0.2 mg/dL (0.2-1.3); BLOOD UREA NITROGEN 11 mg/dL (7-20); CALCIUM 8.8 mg/dL (8.4-10.2); CARBON DIOXIDE 21 mmol/L (22-30); CHLORIDE 108 mmol/L (98-107); GLUCOSE 76 mg/dL (75-110); LIPASE 102.2 U/L (23-300); POTASSIUM 3.5 mmol/L (3.6-5.0); SODIUM 139.7 mmol/L (137-145); TOTAL PROTEIN 6.1 g/dL (6.3-8.2)
[2017-06-21] MEDS ORDERED: ACETAMINOPHEN 325 MG TABLET PO ONE (00:15)
--- NOTE | 2017-06-21 00:31 | ER Document Report ---
ED GI/ - General Chief Complaint: Abdominal Cramping Stated Complaint: ABDOMINAL PAIN Time Seen by Provider: 06/21/17 00:29 Notes: The patient is a 26-year-old female, past medical history polysubstance abuse, 18 weeks , , presents with nausea, vomiting and lower back pain with feelings like contractions that started earlier today. She was at her OB earlier today and there is a small amount of blood on the cervix. According to her, she was told to go the ER she continued to have nausea and vomiting. This is her sixth visit during this for similar issues. She frequently becomes upset and leaves AMA during her ER visits. Patient denies hematemesis, diarrhea, constipation, vaginal bleeding, fevers, dysuria or hematuria. TRAVEL OUTSIDE OF THE [place] IN LAST 30 DAYS: No - Related Data Allergies/Adverse Reactions: ibuprofen [Ibuprofen] Allergy (Severe, Verified 06/11/17 17:18) Anaphylaxis Penicillins Allergy (Severe, Verified 06/11/17 17:18) Anaphylaxis tramadol [Tramadol] Allergy (Severe, Verified 06/11/17 17:18) Anaphylaxis metoclopramide HCl [From Reglan] Adverse Reaction (Severe, Verified 06/11/17 17: 18) Hives nitrofurantoin macrocrystalline [From Macrobid] Adverse Reaction (Severe, Verified 06/11/17 17:18) Hives ceftriaxone sodium [From Rocephin] Adverse Reaction (Intermediate, Verified 17:18) Hives cephalexin monohydrate [From Keflex] Adverse Reaction (Intermediate, Verified 17:18) Hives droperidol [Droperidol] Adverse Reaction (Intermediate, Verified 06/11/17 17:18) Generalized Itching ketorolac tromethamine [From Toradol] Adverse Reaction (Intermediate, Verified 06/11/17 17:18) Generalized rash ondansetron HCl [From Zofran] Adverse Reaction (Intermediate, Verified 06/11/17 17:18) Hives sulfamethoxazole [From Septra] Adverse Reaction (Intermediate, Verified 17:18) Hives trimethoprim [From Septra] Adverse Reaction (Intermediate, Verified 06/11/17 17: 18) Hives prochlorperazine [From Compazine] Adverse Reaction (Verified 06/11/17 17:18) Hives Past Medical History - General Information source: Patient - Social History Smoking Status: Current Every Day Smoker Drug Abuse: Cocaine Family History: Reviewed & Not Pertinent, Arthritis, CAD, DM, Hyperlipidemia, Hypertension, Malignancy Patient has suicidal ideation: No Patient has homicidal ideation: No Pulmonary Medical History: Reports: Hx Asthma Neurological Medical History: Reports: Hx Migraine Renal/ Medical History: Reports: Hx Kidney Stones, Hx Ovarian Cysts. Denies: Hx Peritoneal Dialysis GI Medical History: Reports: Hx Gastroesophageal Reflux Disease - during Musculoskeltal Medical History: Reports Hx Musculoskeletal Trauma Psychiatric Medical History: Reports: Hx Bipolar Disorder, Hx Depression Past Surgical History: Reports: Hx Section - x2, Hx Cholecystectomy - Immunizations Immunizations up to date: Yes Hx Diphtheria, Pertussis, Tetanus Vaccination: Yes - UTD Review of Systems - Review of Systems Notes: REVIEW OF SYSTEMS: CONSTITUTIONAL: -fevers, -chills EENT: -eye pain, -difficulty swallowing, -nasal congestion CARDIOVASCULAR:-chest pain, -syncope. RESPIRATORY: -cough, -SOB GASTROINTESTINAL: +abdominal pain, +nausea, +vomiting, -diarrhea GENITOURINARY: -dysuria, -hematuria MUSCULOSKELETAL: -back pain, -neck pain SKIN: -rash or skin lesions. HEMATOLOGIC: -easy bruising or bleeding. LYMPHATIC: -swollen, enlarged glands. NEUROLOGICAL: -altered mental status or loss of consciousness, -headache, - neurologic symptoms PSYCHIATRIC: -anxiety, -depression. ALL OTHER SYSTEMS REVIEWED AND NEGATIVE. Physical Exam - Vital signs Vitals: Temp Pulse Resp BP Pulse Ox 99.2 F 89 18 126/66 H 98 06/20/17 20:12 06/20/17 20:12 06/20/17 20:12 06/20/17 20:12 06/20/17 20:12 - Notes Notes: PHYSICAL EXAMINATION: GENERAL: Well-appearing, well-nourished and in no acute distress. HEAD: Atraumatic, normocephalic. EYES: Pupils equal round and reactive to light, extraocular movements intact, sclera anicteric, conjunctiva are normal. ENT: nares patent, oropharynx clear without exudates. Moist mucous membranes. NECK: Normal range of motion, supple without lymphadenopathy LUNGS: Breath sounds clear to auscultation bilaterally and equal. No wheezes rales or rhonchi. HEART: Regular rate and rhythm without murmurs ABDOMEN: Soft, nontender, normoactive bowel sounds. No guarding, no rebound. No masses appreciated. EXTREMITIES: Normal range of motion, no pitting or edema. No cyanosis. NEUROLOGICAL: Cranial nerves grossly intact. Normal speech, normal gait. Normal sensory and motor exams. PSYCH: Normal mood, normal affect. SKIN: Warm, Dry, normal turgor, no rashes or lesions noted. Course - Re-evaluation Re-evalutation: Bedside ultrasound shows a single intrauterine fetus consistent with dates and heart rate of 152. Blood work is unremarkable and does not show severe dehydration. No vomiting during her 6 hour ER visit. Patient is refusing to give urinalysis, but she has no dysuria or hematuria. Patient is requesting IV Phenergan, as she has multiple times at prior ER visits. Spoke to her about the possible dangers of IV phenergan. Offered DE Phenergan and Diclegis, but patient said that she is refusing these at this time because "I'm not putting anything up my ass and the Diclegis will probably cause an allergic reaction", even though she has never had Diclegis before. She is refusing the meds at this time. Told her to follow-up with her OB for further evaluation and treatment. - Vital Signs Vital signs: Temp Pulse Resp BP Pulse Ox 99.2 F 89 18 126/66 H 98 06/20/17 20:12 06/20/17 20:12 06/20/17 20:12 06/20/17 20:12 06/20/17 20:12 - Laboratory Result Diagrams: 06/20/17 22:35 06/20/17 22:35 Laboratory results interpreted by me: 06/20/17 06/20/17 22:35 22:35 Hgb 10.0 L Hct 30.5 L MCV 78 L MCH 25.5 L RDW 21.9 H Potassium 3.5 L Chloride 108 H Carbon Dioxide 21 L Total Protein 6.1 L Albumin 3.4 L Beta HCG, Quant 33049.00 H Discharge - Discharge Clinical Impression: Abdominal cramping affecting Nausea and vomiting Qualifiers: Vomiting type: unspecified Vomiting Intractability: non-intractable Qualified Code(s): R11.2 - Nausea with vomiting, unspecified Condition: Stable Disposition: HOME, SELF-CARE Additional Instructions: VOMITING: Vomiting (or nausea without vomiting) can be caused by many other different problems. It can mean that something's wrong with the stomach, such as ulcers or inflammation or the intestinal tract, such as appendicitis. But it can also be a symptom of a problem that has nothing to do with the stomach or intestines. Vomiting is common with severe headaches, earaches, tonsillitis, and kidney infections, etc. We see it with pneumonia or heart attacks. Drugs can cause nausea and vomiting. Many abdominal problems cause vomiting; for example, gallstones, kidney stones, pancreatitis, and intestinal obstruction ( blocked bowels). In most cases, curing the vomiting depends on fixing the problem that caused it. For temporary relief, we may use an anti-nausea medicine. For home use, we can prescribe suppositories, chewable pills, pills that dissolve in the mouth, or liquid anti-nausea drugs. If the vomiting seems to be caused by a problem in the stomach, acid-suppressing drugs may be prescribed as well. It's important to avoid dehydration. Sip small amounts of clear liquids ( soft drinks, tea, broth, etc) . Try to take fluids frequently even if you are vomiting to prevent dehydration. Take increasing amounts of fluid and when liquids are being consumed successfully, advance to small amounts of bland food (toast, soups, mashed potatoes, etc.) until you are able to resume a regular diet. Avoid aspirin, tobacco, and alcohol. If the vomiting worsens, if the problem that's making you vomit worsens, or if there's evidence of bleeding in the stomach (such as black, tarry stool, or bloody or black vomit), you should return immediately. Also, return if abdominal pain worsens or becomes localized to one area or you develop high fever. Call your doctor if you aren't improved in 24 hours. ANTINAUSEA MEDICATION: You have been given a medication to suppress nausea and vomiting. This type of medication can be given as a shot, pill, or suppository. It will usually last for many hours. Pills and shots usually last six to eight hours. For the typical illness, only one or two doses of the medication may be necessary. Mild lightheadedness may occur. This type of medicine can cause drowsiness. Do not drive or operate dangerous machinery while under its influence. Do not mix with alcohol. See your doctor at once if you have muscle spasms or tightness, or uncontrollable motions (particularly of the neck, mouth, or jaw). Persistent vomiting or severe lightheadedness should also be evaluated by the physician. FOLLOW-UP CARE: If you have been referred to a physician for follow-up care, call the physician s office for an appointment as you were instructed or within the next two days. If you experience worsening or a significant change in your symptoms, notify the physician immediately or return to the Emergency Department at any time for re-evaluation. Prescriptions: Doxylamine Succinate/Vit B6 [Blanca Rios 10-10 mg Tablet] 1 each PO Q8H PRN #15 tablet. PRN Reason: Referrals: [facility] [Provider Group] - Follow up as needed
== END 2017-06-21 03:30 | disposition home or self-care (01) ==
LOC: ER 19:33
DX: O26.92 Pregnancy related conditions, unspecified, second trimester (principal); O21.8 Other vomiting complicating pregnancy; O99.332 Smoking (tobacco) complicating pregnancy, second trimester; Z3A.18 18 weeks gestation of pregnancy; Z88.0 Allergy status to penicillin; Z88.6 Allergy status to analgesic agent; Z88.3 Allergy status to other anti-infective agents
CPT/HCPCS: 36415; 80053; 83690; 84702; 85025; 99281

== ENCOUNTER 2017-07-05 08:22 | Outpatient (CLI) | payer MEDICAID ==
--- NOTE | 2017-07-05 08:35 | Non Stress Test Report ---
Non Stress Test Datetime Report Generated by CPN: 07/05/2017 08:35 DEMOGRAPHIC Test Number: 3 Test Number: 2 EGA NST: 39.0 EGA NST: 38.0 EGA NST: 36.1 INDICATION Indication for Study: Ordered by Provider; Other Indication for Study: Ordered by Provider Indication for Study: Other Indication for Study (NST) Other: Preeclampsia Eval VITAL SIGNS Temperature - NST: 98.4 Pulse - NST: 98 RESP - NST: 16 NBPSYS NST: 122 NBPDIA NST: 54 URINE RESULTS Urine Protein, NST: Negative Urine Ketones - NST: Positive Urine Glucose - NST: Negative Urine Blood - NST: Negative MONITORING Monitor Explained: Monitor Explained; Test Explained; Patient Verbalized Understanding Monitor Explained: Monitor Explained; Test Explained; Patient Verbalized Understanding Monitor Explained: Monitor Explained; Test Explained; Patient Verbalized Understanding Time on Monitor: 12/20/2015 15:21 Time on Monitor: 12/13/2015 01:02 Time on Monitor: 11/30/2015 18:39 Time off Monitor: 12/20/2015 16:00 Time off Monitor: 12/13/2015 02:17 Time off Monitor: 11/30/2015 19:07 NST Duration: 39 NST Duration: 75 NST Duration: 28 NST INTERVENTIONS NST Interventions: None NST Interventions: PO Hydration; Reposition Patient NST Interventions: PO Hydration Physician Notified NST: Dr Callejas Physician Notified NST: Dr. Farrell Physician Notified NST: Dr. No BABY A: [id number] BABY A Movement : Present Movement : Decreased Movement : Present Contraction Frequency : 0 Contraction Frequency : rare Contraction Frequency : 0 FHR Baseline : 135 FHR Baseline : 130 FHR Baseline : 130 Accelerations : 15X15 Accelerations : 15X15 Accelerations : 15X15 Decelerations : None Decelerations : None Decelerations : None Variability : Moderate 6-25bpm Variability : Moderate 6-25bpm Variability : Moderate 6-25bpm NST Review: Meets Criteria for Reactive NST NST Review: Meets Criteria for Reactive NST NST Review: Meets Criteria for Reactive NST NST Review and Verified By : RONI ROMO RN (Annotations: Data stored by [facility] on behalf of user) NST Review and Verified By : Mike Paiz RN NST Review and Verified By : Mae Anton RN NST Results: Reactive NST Results: Reactive NST Results: Reactive NST COMMENTS NST Comments: positive cocaine, positive marijuana, patient states movement decreased since she drank milk that she felt possibly had cocaine in it NST Comments: Dr. No on unit and reveiwed strip NST REPORT Report Trigger: Send Report Report Trigger: Send Report
[2017-07-05] MEDS ORDERED: (PENDING PHARMACY ID) (Prenatal No122/Iron/Folic Acid [Prenatal Multi Tablet] 1 EACH) PO SCH (10:00)
[2017-07-05] MEDS ORDERED: PRENATAL VITAMIN W-O CA NO5/FE FUMARATE/FA CAPSULE PO SCH (10:00)
== END 2017-07-05 09:15 | disposition left against medical advice (07) ==
LOC: LC 08:22
PROVIDERS: ATTEND Obstetrics & Gynecology Gynecology
PROC: 4A1HXCZ Monitoring of Products of Conception, Cardiac Rate, External Approach (ICD-10-PCS; principal; 2017-07-05)
DX: O36.8120 Decreased fetal movements, second trimester, not applicable or unspecified (principal); R10.9 Unspecified abdominal pain; Z3A.20 20 weeks gestation of pregnancy

== ENCOUNTER 2017-07-25 14:20 | Outpatient (CLI) | payer OTHER, MEDICAID ==
[2017-07-25 15:26] LABS: APPEARANCE,URINE CLEAR; BILIRUBIN,URINE NEGATIVE (NEGATIVE); GLUCOSE, URINE NEGATIVE (NEGATIVE); KETONES,URINE NEGATIVE (NEGATIVE); LEUKOCYTE ESTERASE,URINE NEGATIVE (NEGATIVE); NITRITE,URINE NEGATIVE (NEGATIVE); PROTEIN,URINE NEGATIVE (NEGATIVE); URINE SPECIFIC GRAVITY 1.005; UROBILINOGEN,URINE NEGATIVE mg/dL (<2.0)
[2017-07-25 15:40] LABS: URINE BARBITURATES SCREEN NEGATIVE; URINE METHADONE SCREEN NEGATIVE; URINE OPIATES LOW NEGATIVE; URINE PHENCYCLIDINE SCREEN NEGATIVE
--- NOTE | 2017-07-25 15:46 | L&D Progress Notes ---
PROGRESS NOTES Datetime Report Generated by CPN: 07/25/2017 15:46 PROGRESS NOTE Comment: 26 yo presents from [facility] for sharp stabbing pain that radiates to her back history of previous c sections history of cholecystectomy abdomen soft and nontender no contractions noted uA wnl bilateral ligament pain noted defer vaginal exam precautions reviewed d/c home no cramping no bleeding SIGNATURE SIGNATURE: [id number] Assignment: Durga Engle MD Signature: with User ID: [email or web address] : with User ID: [email or web address]
[2017-07-26] MEDS ORDERED: (PENDING PHARMACY ID) (Prenatal No122/Iron/Folic Acid [Prenatal Multi Tablet] 1 EACH) PO SCH (10:00)
[2017-07-26] MEDS ORDERED: PRENATAL VITAMIN W DHA CAPSULE PO SCH (10:00)
[2017-07-26] MEDS ORDERED: PROMETHAZINE HCL 25 MG TABLET PO SCH (10:00)
== END 2017-07-25 15:40 | disposition home or self-care (01) ==
LOC: LC 14:20
PROVIDERS: ATTEND Obstetrics & Gynecology Gynecology
PROC: 4A1HXCZ Monitoring of Products of Conception, Cardiac Rate, External Approach (ICD-10-PCS; principal; 2017-07-25)
DX: O26.892 Other specified pregnancy related conditions, second trimester (principal); R10.2 Pelvic and perineal pain; Z3A.22 22 weeks gestation of pregnancy
CPT/HCPCS: 80307; 81001

== ENCOUNTER 2017-10-30 18:15 | Outpatient (CLI) | payer MEDICAID ==
[2017-10-30] MEDS ORDERED: HYDROXYZINE PAMOATE 50 MG CAPSULE PO ONE (18:59)
[2017-10-30] MEDS ORDERED: PROMETHAZINE HCL 25 MG TABLET PO ONE (19:02)
[2017-10-30] MEDS ORDERED: HYDROXYZINE PAMOATE 50 MG CAPSULE ONE (19:08)
[2017-10-30] MEDS ORDERED: PROMETHAZINE HCL 25 MG TABLET ONE (19:08)
--- NOTE | 2017-10-30 19:31 | Non Stress Test Report ---
Non Stress Test Datetime Report Generated by CPN: 10/30/2017 19:31 DEMOGRAPHIC EGA NST: 36.5 INDICATION Indication for Study: Ordered by Provider Indication for Study (NST) Other: LC MONITORING Monitor Explained: Monitor Explained; Test Explained; Patient Verbalized Understanding Time on Monitor: 10/30/2017 18:30 Time off Monitor: 10/30/2017 19:09 NST Duration: 39 NST INTERVENTIONS NST Interventions: PO Hydration Physician Notified NST: Oneal BABY A: [id number] BABY A Movement : Present Contraction Frequency : irritability FHR Baseline : 125 Accelerations : 15X15 Decelerations : None Variability : Moderate 6-25bpm NST Review: Meets Criteria for Reactive NST NST Review and Verified By : Lesli Topete RN NST Results: Reactive NST REPORT Report Trigger: Send Report
== END 2017-10-30 19:30 | disposition home or self-care (01) ==
LOC: LC 18:15
PROVIDERS: ATTEND Obstetrics & Gynecology
PROC: 4A1HXCZ Monitoring of Products of Conception, Cardiac Rate, External Approach (ICD-10-PCS; principal; 2017-10-30)
DX: O26.893 Other specified pregnancy related conditions, third trimester (principal); N94.89 Other specified conditions associated with female genital organs and menstrual cycle; Z3A.36 36 weeks gestation of pregnancy
CPT/HCPCS: 59025; J3490 ×2

== ENCOUNTER 2017-11-16 07:07 | Inpatient (IN) | payer MEDICAID ==
[2017-11-15 16:54] LABS: APPEARANCE,URINE CLEAR; BILIRUBIN,URINE NEGATIVE (NEGATIVE); COLOR,URINE STRAW; GLUCOSE, URINE NEGATIVE (NEGATIVE); KETONES,URINE NEGATIVE (NEGATIVE); LEUKOCYTE ESTERASE,URINE NEGATIVE (NEGATIVE); NITRITE,URINE NEGATIVE (NEGATIVE); PROTEIN,URINE NEGATIVE (NEGATIVE); URINE SPECIFIC GRAVITY 1.005; UROBILINOGEN,URINE NEGATIVE mg/dL (<2.0)
[2017-11-15 17:06] LABS: ABSOLUTE EOSINOPHILS # (AUTO) 0.4 10^3/uL (0.0-0.6); ABSOLUTE LYMPHOCYTES (AUTO) 1.4 10^3/uL (0.5-4.7); ABSOLUTE MONOCYTES (AUTO) 0.7 10^3/uL (0.1-1.4); ABSOLUTE NEUT (AUTO) 7.9 10^3/uL (1.7-8.2); BASOPHILS % (AUTO) 0.4 % (0-2); EOSINOPHILS % (AUTO) 3.4 % (0-6); HEMATOCRIT 32.6 % (36.0-47.0); HEMOGLOBIN 10.5 g/dL (12.0-15.5); LYMPHOCYTES % (AUTO) 13.5 % (13-45); MEAN CORPUSCULAR HEMOGLOBIN 23.4 pg (27.0-33.4); MEAN CORPUSCULAR HGB CONC 32.3 g/dL (32.0-36.0); MEAN CORPUSCULAR VOLUME 73 fl (80-97); MONOCYTES % (AUTO) 7.1 % (3-13); PLATELET COUNT 226 10^3/uL (150-450); RED BLOOD COUNT 4.49 10^6/uL (3.72-5.28); RED CELL DISTRIBUTION WIDTH 20.3 % (11.5-14.0); SEGMENTED NEUTROPHILS % (AUTO) 75.6 % (42-78); TOTAL CELLS COUNTED % (AUTO) 100 %; WHITE BLOOD COUNT 10.4 10^3/uL (4.0-10.5)
[2017-11-15 17:13] LABS: URINE AMPHETAMINES SCREEN NEGATIVE; URINE BARBITURATES SCREEN NEGATIVE; URINE BENZODIAZEPINES SCREEN NEGATIVE; URINE COCAINE SCREEN NEGATIVE; URINE MARIJUANA (THC) SCREEN NEGATIVE; URINE METHADONE SCREEN NEGATIVE; URINE PHENCYCLIDINE SCREEN NEGATIVE
[~2017-11-16 07:07] MED LIST: AZITHROMYCIN 500 MG in DEXTROSE 5%-WATER 250 ML IV PRN; LACTATED RINGERS 1000 ML IV PRN; LIDOCAINE 0.5% INJ-PF (5 MG/ML) 50 ML SDV SUBCUT PRN; RINGERS SOLUTION,LACTATED 2,000 ML IV PRN
[2017-11-16 08:47] LABS: RUBELLA IGG ANTIBODY 5.16 IU/mL
[2017-11-16 08:49] LABS: RUBELLA INTERPRETATION NEGATIVE
[2017-11-16] MEDS ORDERED: MIDAZOLAM 2 MG/2 ML INJ ONE (11:33)
[2017-11-16] MEDS ORDERED: OXYTOCIN 10 UNIT/ML VIAL ONE (11:34)
[2017-11-16] MEDS ORDERED: EPHEDRINE SULFATE INJ 50 MG/1 ML AMPULE ONE (11:34)
[2017-11-16] MEDS ORDERED: DIPHENHYDRAMINE HCL 50 MG/ML VIAL IV PRN (11:51)
[2017-11-16] MEDS ORDERED: FENTANYL CITRATE INJ/PF 100 MCG/2 ML AMPUL IV PRN ×4 (11:51→14:27)
[2017-11-16] MEDS ORDERED: OXYCODONE-ACETAMINOPHEN 5-325 MG TABLET PO PRN ×3 (11:51→16:00)
[2017-11-16] MEDS ORDERED: MEPERIDINE HCL/PF INJ 25 MG/1 ML DISP.SYRIN IV PRN (11:51)
[2017-11-16] MEDS ORDERED: PROMETHAZINE HCL INJ 25 MG/1 ML VIAL IV PRN ×2 (11:51)
[2017-11-16] MEDS ORDERED: FENTANYL CITRATE INJ/PF 100 MCG/2 ML AMPUL ONE (12:56)
[2017-11-16] MEDS ORDERED: ACETAMINOPHEN 100 ML IV ONE (12:59)
[2017-11-16] MEDS ORDERED: ACETAMINOPHEN 325 MG TABLET PO PRN (13:24)
[2017-11-16] MEDS ORDERED: DIPH/PERTUSS(ACELL)/TETANUS VAC/PF 0.5 ML SYR (>=10YO) IM PRN (13:24)
[2017-11-16] MEDS ORDERED: MEASLES,MUMPS&RUBELLA VACC/PF 0.5 ML VIAL SUBCUT PRN (13:24)
[2017-11-16] MEDS ORDERED: OXYTOCIN/NORMAL SALINE 20 UNIT/1,000 ML RTUINJ IV PRN (13:24)
[2017-11-16] MEDS ORDERED: RINGERS SOLUTION,LACTATED 1,000 ML IV PRN (13:24)
[2017-11-16] MEDS ORDERED: SIMETHICONE 80 MG TAB.CHEW PO PRN (13:24)
[2017-11-16] MEDS ORDERED: HYDROMORPHONE HCL INJ/PF 2 MG/ML AMPULE ONE (13:42)
[2017-11-16] MEDS: HYDROMORPHONE HCL INJ/PF 2 MG/ML AMPULE IV PRN ×3 (13:47→20:30)
--- NOTE | 2017-11-16 14:44 | OPERATIVE REPORT E ---
Operative Report NAME: PRAVIN CABRERA : 1990 AGE: 27Y DATE OF SURGERY: ROOM: 226 PREOPERATIVE DIAGNOSES: 1. IUP AT 39 WEEKS. 2. PREVIOUS X2. 3. PELVIC ADHESIVE DISEASE. POSTOPERATIVE DIAGNOSES: 1. IUP AT 39 WEEKS. 2. PREVIOUS X2. 3. PELVIC ADHESIVE DISEASE. OPERATION: Repeat low transverse hysterotomy section. SURGEON: ALEX ESPINOZA M.D. ALUMINUM WELDER: Sayda Flores, Food And Beverage Service Manager Lithographers Printer. ANESTHESIA: Dr. Marrero with a spinal. FINDINGS: Multiple adhesions of the rectus muscle to the uterus. The was a male in cephalic presentation with 's of 9 and 9. COMPLICATIONS: None. ESTIMATED BLOOD LOSS: 600 mL. SPECIMENS REMOVED: None. PROCEDURE: The patient was taken to the operating room, prepared and draped in a normal sterile fashion in the supine position with a leftward tilt. A transverse skin incision was made with the scalpel and carried through to the underlying layer of fascia with the same scalpel. The fascia was excised in the midline and extended laterally with the Morales. The fascia and the rectus muscle were then divided using Morales's for sharp dissection. The rectus muscle was sharply using Bovie, and the peritoneal cavity was entered bluntly. The bladder blade was inserted. The adhesions were taken down with Metzenbaum's and the hysterotomy was then nicked with the scalpel and extended laterally with surgeon finger pressure. The infant was then delivered atraumatically. The nose and mouth were suctioned with the suction bulb and the cord was clamped and cut, and the was handed off to a waiting records management coordinator. Cord blood was collected and the placenta was removed manually. The uterus was exteriorized and cleared of clots and debris. The hysterotomy was closed with 0 Monocryl in a running locked fashion. A second layer of the same suture was used to imbricate to ensure hemostasis. The uterus was then returned to the abdomen. The peritoneal cavity was cleared of clots and debris. The rectus muscle and peritoneum were reapproximated with a mattress suture of 2-0 chromic, the fascia was closed with 0 Vicryl, the subcutaneous layer was closed with plain catgut, and the skin was closed with 4-0 Vicryl. The patient tolerated the procedure well. Sponge, lap and needle counts were correct x2. The patient was taken to recovery in stable condition. DICTATING PHYSICIAN: ALEX ESPINOZA M.D. [id number] PHY#: [id number] ID: [id number] JOB#: [id number] ACCT: [id number] cc:ALEX ESPINOZA M.D. >
[2017-11-16] MEDS: OXYCODONE-ACETAMINOPHEN 5-325 MG TABLET PO PRN ×2 (15:52→23:19)
[2017-11-16] MEDS: DOCUSATE SODIUM 100 MG CAPSULE PO SCH (17:01)
[2017-11-16] MEDS ORDERED: IBUPROFEN 800 MG TABLET PO SCH (18:00)
[2017-11-16] MEDS: PROMETHAZINE HCL INJ 25 MG/1 ML VIAL IV PRN (19:23)
[2017-11-16] MEDS: ACETAMINOPHEN 100 ML IV SCH (21:29)
[2017-11-17] MEDS: HYDROMORPHONE HCL INJ/PF 2 MG/ML AMPULE IV PRN (00:33)
[2017-11-17] MEDS: PROMETHAZINE HCL INJ 25 MG/1 ML VIAL IV PRN (03:26)
[2017-11-17] MEDS: OXYCODONE-ACETAMINOPHEN 5-325 MG TABLET PO PRN ×4 (03:33→21:37)
[2017-11-17] MEDS: ACETAMINOPHEN 100 ML IV SCH (05:20)
[2017-11-17 06:39] LABS: HEPATITIS C VIRUS AB <0.1 s/co ratio (0.0-0.9)
[2017-11-17 06:59] LABS: HEMATOCRIT 26.7 % (36.0-47.0); MEAN CORPUSCULAR HEMOGLOBIN 22.9 pg (27.0-33.4); MEAN CORPUSCULAR HGB CONC 31.5 g/dL (32.0-36.0); MEAN CORPUSCULAR VOLUME 73 fl (80-97); PLATELET COUNT 186 10^3/uL (150-450); RED BLOOD COUNT 3.66 10^6/uL (3.72-5.28); RED CELL DISTRIBUTION WIDTH 20.2 % (11.5-14.0); WHITE BLOOD COUNT 10.1 10^3/uL (4.0-10.5)
[2017-11-17 07:13] LABS: HEMOGLOBIN 8.4 g/dL (12.0-15.5)
[2017-11-17] MEDS ORDERED: ONDANSETRON 4 MG TAB.RAPDIS ONE (08:20)
[2017-11-17] MEDS ORDERED: ONDANSETRON 4 MG TAB.RAPDIS PO PRN (08:20)
[2017-11-17] MEDS: DOCUSATE SODIUM 100 MG CAPSULE PO SCH ×2 (09:59→18:18)
[2017-11-17] MEDS: PRENATAL VITAMIN W DHA CAPSULE PO SCH (09:59)
--- NOTE | 2017-11-17 11:32 | PDOC PROGRESS REPORT ---
Subjective-OB Progress Note for:: 11/17/17 Subjective: day X1 s/p r c/s Doing well, passing gas, ambulating, pain moderately well controlled, tolerating diet, lochia is stable, voiding without difficulty. Bonding with baby well. Physical Exam (OB) Vital Signs: Temp Pulse Resp BP Pulse Ox 98.3 F 79 17 120/59 L 100 11/17/17 08:16 11/17/17 08:16 11/17/17 08:16 11/17/17 08:16 11/17/17 08:16 Intake & Output 11/16/17 11/17/17 11/18/17 06:59 06:59 06:59 Intake Total 4340 Output Total 1800 Balance 2540 - Dressing Removed: No - op site Incision: Dressing Closure Type: Sutures - Lochia Lochia Amount: Scant < 10 ml Lochia Color: Rubra/Red - Abdomen Description: Soft, Round Hernia Present: No Fundal Description: Firm, Midline Describe if Not Midline: pt refusing fundal rub Fundal Height: u/u - u/2 Objective-Diagnostic Laboratory: 11/17/17 06:42 11/17/17 06:42 WBC 10.1 RBC 3.66 L Hgb 8.4 L D Hct 26.7 L MCV 73 L MCH 22.9 L MCHC 31.5 L RDW 20.2 H Plt Count 186 Assessment and Plan(PN) - Time Spent with Patient Time with patient: Less than 15 minutes Critical Time spent with patient: Less than 15 minutes Medications reviewed and adjusted accordingly: Yes - Disposition Anticipated Discharge: Home Within: within 24 hours
[2017-11-17] MEDS ORDERED: OXYCODONE HCL IR 5 MG TABLET ONE (12:48)
[2017-11-17] MEDS ORDERED: OXYCODONE HCL IR 5 MG TABLET PO ONE (14:00)
[2017-11-18] MEDS: OXYCODONE-ACETAMINOPHEN 5-325 MG TABLET PO PRN ×3 (01:48→09:59)
[2017-11-18 06:07] LABS: HEPATITS B SURFACE ANTIGEN Negative (Negative)
--- NOTE | 2017-11-18 09:13 | PDOC DISCHARGE SUMMARY ---
Final Diagnosis Discharge Date: 11/18/17 - Final Diagnosis (1) Anemia affecting , antepartum Is this a current diagnosis for this admission?: Yes (2) Delivery by elective caesarean section Is this a current diagnosis for this admission?: Yes (3) Drug use complicating Is this a current diagnosis for this admission?: Yes (4) Marijuana abuse Is this a current diagnosis for this admission?: Yes Discharge Data - Discharge Medication Prescriptions: Oxycodone HCl/Acetaminophen [Percocet 5-325 mg Tablet] 1 tab PO Q4HP PRN #30 tablet PRN Reason: Docusate Sodium [Colace 100 mg Capsule] 100 mg PO BID #60 capsule Home Medications: Mometasone/Formoterol [Dulera 100 Mcg/5 Mcg Inhaler] 13 gm IH BID 11/14/17 Prenat 115/Iron Fum/Folic/Dss [ 19 Tablet] 1 each PO DAILY 11/14/17 Docusate Sodium [Colace 100 mg Capsule] 100 mg PO BID #60 capsule 11/18/17 Oxycodone HCl/Acetaminophen [Percocet 5-325 mg Tablet] 1 tab PO Q4HP PRN #30 tablet 11/18/17 Gestational Age: 39.5 Reason(s) for Admission: Ceasarean Section-Repeat Procedures: NST Intrapartum Procedure(s): : Low Cervical, Transverse - Data Baby 1 Male at 1 minute: 9 at 5 minutes: 9 Home with Mother: Yes Complications: No - Diagnosis Test Laboratory: Temp Pulse Resp BP Pulse Ox 97.3 F 94 16 126/60 H 100 11/18/17 07:57 11/18/17 07:57 11/18/17 07:57 11/18/17 07:57 11/18/17 07:57 11/15/17 11/15/17 11/17/17 16:04 16:11 06:42 RBC 4.49 3.66 L Hgb 10.5 L 8.4 L D Hct 32.6 L 26.7 L Urine Opiates Screen NEGATIVE - Discharge information/Instructions Discharge Activity: Activity As Tolerated, No Driving, No Lifting Over 10 Pounds , Pelvic Rest, No tub bath Discharge Diet: Regular Disposition: HOME, SELF-CARE Follow up with: [facility] in: 1, Weeks - has ferrous sulfate @ home declines rx.
[2017-11-18 09:31] VITALS: BP 135/69
[2017-11-18] MEDS: PRENATAL VITAMIN W DHA CAPSULE PO SCH (09:58)
[2017-11-18] MEDS: DOCUSATE SODIUM 100 MG CAPSULE PO SCH (09:59)
== END 2017-11-18 11:05 | disposition home or self-care (01) | DRG 765 ==
LOC: 2S 07:07
PROVIDERS: ADMIT Obstetrics & Gynecology; ATTEND Obstetrics & Gynecology
PROC: 0JNC0ZZ Release Pelvic Region Subcutaneous Tissue and Fascia, Open Approach (ICD-10-PCS; 2017-11-16)
PROC: 4A1HXCZ Monitoring of Products of Conception, Cardiac Rate, External Approach (ICD-10-PCS; 2017-11-16)
PROC: 10D00Z1 Extraction of Products of Conception, Low, Open Approach (ICD-10-PCS; principal; 2017-11-16 10:45)
DX: O34.211 Maternal care for low transverse scar from previous cesarean delivery (principal); O99.324 Drug use complicating childbirth; D64.9 Anemia, unspecified; O99.02 Anemia complicating childbirth; F12.10 Cannabis abuse, uncomplicated; O99.344 Other mental disorders complicating childbirth; F41.9 Anxiety disorder, unspecified; F32.9 Major depressive disorder, single episode, unspecified; O99.89 Other specified diseases and conditions complicating pregnancy, childbirth and the puerperium; N73.6 Female pelvic peritoneal adhesions (postinfective); Z88.6 Allergy status to analgesic agent; Z88.1 Allergy status to other antibiotic agents; Z88.3 Allergy status to other anti-infective agents; Z88.0 Allergy status to penicillin; Z88.8 Allergy status to other drugs, medicaments and biological substances; Z83.3 Family history of diabetes mellitus; Z82.49 Family history of ischemic heart disease and other diseases of the circulatory system; Z80.8 Family history of malignant neoplasm of other organs or systems; Z3A.39 39 weeks gestation of pregnancy; Z37.0 Single live birth
CPT/HCPCS: 1961; 36415; 59025; 80307; 81001; 85025; 85027; 86592; 86701; 86762; 86803; 86804; 86850; 86900; 86901; 87340; 94799; C1765; J0131; J0456; J1170; J2250; J2550; J2590; J3010; J3490; J7060; J7120

== ENCOUNTER 2017-11-20 09:34 | Emergency (ER) | payer MEDICAID ==
[2017-11-20] MEDS ORDERED: FENTANYL CITRATE INJ/PF 100 MCG/2 ML AMPUL IV ONE ×3 (10:36→12:03)
[2017-11-20] MEDS ORDERED: ONDANSETRON HCL INJ/PF 4 MG/2 ML SDV IV ONE (10:36)
--- NOTE | 2017-11-20 10:38 | ER Document Report ---
ED Medical Screen (RME) - General Chief Complaint: Leg Swelling Stated Complaint: NAUSEA Time Seen by Provider: 11/20/17 10:31 Notes: RME DISCLOSURE I have seen this patient as part of a Rapid Medical Evaluation and, if applicable, placed any initially appropriate orders. The patient will be seen and fully evaluated, including a full history and physical exam, by a provider ( in Main ED or Fast Track) when a room becomes available. 27-year-old female status post several days ago here with complaints of progressively worsening right lower quadrant abdominal pain as well as vomiting. She is unable to keep down her pain medication due to the vomiting. She has no diarrhea or dysuria hematuria. She also complains of right leg swelling progressively worsening since the but no shortness of breath chest pain tightness or discomfort. She has no prior history of DVT/PE but does have a family history of DVT in the mother (in her legs). EXAM Mild to moderate right lower quadrant and suprapubic tenderness palpation TRAVEL OUTSIDE OF THE [place] IN LAST 30 DAYS: No - Related Data Allergies/Adverse Reactions: ibuprofen [Ibuprofen] Allergy (Severe, Verified 11/20/17 09:38) Anaphylaxis Penicillins Allergy (Severe, Verified 11/20/17 09:38) Anaphylaxis tramadol [Tramadol] Allergy (Severe, Verified 11/20/17 09:38) Anaphylaxis metoclopramide HCl [From Reglan] Adverse Reaction (Severe, Verified 11/20/17 09: 38) Hives nitrofurantoin macrocrystalline [From Macrobid] Adverse Reaction (Severe, Verified 11/20/17 09:38) Hives ceftriaxone sodium [From Rocephin] Adverse Reaction (Intermediate, Verified 09:38) Hives cephalexin monohydrate [From Keflex] Adverse Reaction (Intermediate, Verified 09:38) Hives droperidol [Droperidol] Adverse Reaction (Intermediate, Verified 11/20/17 09:38) Generalized Itching ketorolac tromethamine [From Toradol] Adverse Reaction (Intermediate, Verified 11/20/17 09:38) Generalized rash ondansetron HCl [From Zofran] Adverse Reaction (Intermediate, Verified 11/20/17 09:38) Hives sulfamethoxazole [From Septra] Adverse Reaction (Intermediate, Verified 09:38) Hives trimethoprim [From Septra] Adverse Reaction (Intermediate, Verified 11/20/17 09: 38) Hives prochlorperazine [From Compazine] Adverse Reaction (Verified 11/20/17 09:38) Hives Past Medical History - Past Medical History Cardiac Medical History: Denies: Hx Hypertension, Hx Pulmonary Embolism, Hx Heart Murmur Pulmonary Medical History: Reports: Hx Asthma Denies: Hx Sleep Apnea, Hx Tuberculosis Neurological Medical History: Reports: Hx Migraine Endocrine Medical History: Denies: Hx Hyperthyroidism, Hx Hypothyroidism Renal/ Medical History: Reports: Hx Kidney Stones, Hx Ovarian Cysts. Denies: Hx Peritoneal Dialysis GI Medical History: Reports: Hx Gastroesophageal Reflux Disease - during Musculoskeltal Medical History: Denies Hx Fibromyalgia, Reports Hx Musculoskeletal Trauma Psychiatric Medical History: Reports: Hx Bipolar Disorder, Hx Depression Traumatic Medical History: Denies: Hx Fractures Infectious Medical History: Past Surgical History: Reports: Hx Section - x2, Hx Cholecystectomy - Immunizations Immunizations up to date: Yes Hx Diphtheria, Pertussis, Tetanus Vaccination: Yes - UTD History of Influenza Vaccine for 05/2017 - 10/2017 Season: Yes Influenza Administration Date for 05/2017 - 10/2017 Season: 05/28/17 Physical Exam - Vital signs Vitals: Temp Pulse Resp BP Pulse Ox 98.8 F 89 20 118/84 100 11/20/17 09:41 11/20/17 09:41 11/20/17 09:41 11/20/17 09:41 11/20/17 09:41 Course - Vital Signs Vital signs: Temp Pulse Resp BP Pulse Ox 98.8 F 89 20 118/84 100 11/20/17 09:41 11/20/17 09:41 11/20/17 09:41 11/20/17 09:41 11/20/17 09:41
[2017-11-20 11:24] LABS: ABSOLUTE EOSINOPHILS # (AUTO) 0.7 10^3/uL (0.0-0.6); ABSOLUTE LYMPHOCYTES (AUTO) 1.4 10^3/uL (0.5-4.7); ABSOLUTE MONOCYTES (AUTO) 0.5 10^3/uL (0.1-1.4); ABSOLUTE NEUT (AUTO) 7.1 10^3/uL (1.7-8.2); BASOPHILS % (AUTO) 0.5 % (0-2); EOSINOPHILS % (AUTO) 7.5 % (0-6); HEMATOCRIT 28.7 % (36.0-47.0); LYMPHOCYTES % (AUTO) 14.2 % (13-45); MEAN CORPUSCULAR HEMOGLOBIN 23.1 pg (27.0-33.4); MEAN CORPUSCULAR HGB CONC 31.4 g/dL (32.0-36.0); MEAN CORPUSCULAR VOLUME 73 fl (80-97); PLATELET COUNT 275 10^3/uL (150-450); RED BLOOD COUNT 3.91 10^6/uL (3.72-5.28); RED CELL DISTRIBUTION WIDTH 20.9 % (11.5-14.0); SEGMENTED NEUTROPHILS % (AUTO) 72.8 % (42-78); TOTAL CELLS COUNTED % (AUTO) 100 %; WHITE BLOOD COUNT 9.7 10^3/uL (4.0-10.5)
[2017-11-20] MEDS ORDERED: NORMAL SALINE 1000 ML 1,000 ML IV ONE (11:39)
--- NOTE | 2017-11-20 11:39 | ER Document Report ---
ED GI/ - General Chief Complaint: Leg Swelling Stated Complaint: NAUSEA Time Seen by Provider: 11/20/17 10:31 Mode of Arrival: Ambulatory Information source: Patient Notes: 27 yo female c/o abdominal pain right side of c section and swelling to her right leg more than left leg. C section on 11-16., discharged on the 11/18 at [facility]. No fever, no dysuria, frequency or urgency. No n/v/d. TRAVEL OUTSIDE OF THE [place] IN LAST 30 DAYS: No - Related Data Allergies/Adverse Reactions: ibuprofen [Ibuprofen] Allergy (Severe, Verified 11/20/17 09:38) Anaphylaxis Penicillins Allergy (Severe, Verified 11/20/17 09:38) Anaphylaxis tramadol [Tramadol] Allergy (Severe, Verified 11/20/17 09:38) Anaphylaxis metoclopramide HCl [From Reglan] Adverse Reaction (Severe, Verified 11/20/17 09: 38) Hives nitrofurantoin macrocrystalline [From Macrobid] Adverse Reaction (Severe, Verified 11/20/17 09:38) Hives ceftriaxone sodium [From Rocephin] Adverse Reaction (Intermediate, Verified 09:38) Hives cephalexin monohydrate [From Keflex] Adverse Reaction (Intermediate, Verified 09:38) Hives droperidol [Droperidol] Adverse Reaction (Intermediate, Verified 11/20/17 09:38) Generalized Itching ketorolac tromethamine [From Toradol] Adverse Reaction (Intermediate, Verified 11/20/17 09:38) Generalized rash ondansetron HCl [From Zofran] Adverse Reaction (Intermediate, Verified 11/20/17 09:38) Hives sulfamethoxazole [From Septra] Adverse Reaction (Intermediate, Verified 09:38) Hives trimethoprim [From Septra] Adverse Reaction (Intermediate, Verified 11/20/17 09: 38) Hives prochlorperazine [From Compazine] Adverse Reaction (Verified 11/20/17 09:38) Hives Past Medical History - General Information source: Patient - Social History Smoking Status: Current Every Day Smoker Chew tobacco use (# tins/day): No Frequency of alcohol use: None Drug Abuse: None Lives with: Family Family History: Reviewed & Not Pertinent, Arthritis, CAD, DM, Hyperlipidemia, Hypertension, Malignancy Patient has suicidal ideation: No Patient has homicidal ideation: No Pulmonary Medical History: Reports: Hx Asthma Neurological Medical History: Reports: Hx Migraine Renal/ Medical History: Reports: Hx Kidney Stones, Hx Ovarian Cysts GI Medical History: Reports: Hx Gastroesophageal Reflux Disease - during Musculoskeltal Medical History: Reports Hx Musculoskeletal Trauma Psychiatric Medical History: Reports: Hx Bipolar Disorder, Hx Depression Infectious Medical History: Past Surgical History: Reports: Hx Section - x2, Hx Cholecystectomy - Immunizations Immunizations up to date: Yes Hx Diphtheria, Pertussis, Tetanus Vaccination: Yes - UTD Review of Systems - Review of Systems Constitutional: No symptoms reported EENT: No symptoms reported Cardiovascular: No symptoms reported Respiratory: No symptoms reported Gastrointestinal: See HPI Genitourinary: No symptoms reported Female Genitourinary: No symptoms reported Musculoskeletal: See HPI Skin: No symptoms reported Hematologic/Lymphatic: No symptoms reported Neurological/Psychological: No symptoms reported Physical Exam - Vital signs Vitals: Temp Pulse Resp BP Pulse Ox 98.8 F 89 20 118/84 100 11/20/17 09:41 11/20/17 09:41 11/20/17 09:41 11/20/17 09:41 11/20/17 09:41 Interpretation: Normal - General General appearance: Appears well, Alert - HEENT Head: Normocephalic, Atraumatic Eyes: Normal Conjunctiva: Normal Pupils: PERRL Mucous membranes: Normal Pharynx: Normal Neck: Supple - Respiratory Respiratory status: No respiratory distress Chest status: Nontender Breath sounds: Normal Chest palpation: Normal - Cardiovascular Rhythm: Regular Heart sounds: Normal auscultation Murmur: No - Abdominal Inspection: Normal Distension: No distension Bowel sounds: Normal Tenderness: Tender - right pelvis tender most over the suture line, no erythema Organomegaly: No organomegaly. No: Hepatomegaly, Splenomegaly - Back Back: Normal, Nontender. No: CVA tenderness - Extremities General upper extremity: Normal inspection, Nontender, Normal color, Normal ROM , Normal temperature General lower extremity: Normal inspection, Nontender, Normal color, Normal ROM , Normal temperature, Normal weight bearing. No: Chon's sign - Neurological Neuro grossly intact: Yes Cognition: Normal Orientation: AAOx4 [place] Coma Scale Eye Opening: Spontaneous Rico Coma Scale Verbal: Oriented [place] Coma Scale Motor: Obeys Commands [place] Coma Scale Total: 15 Speech: Normal Motor strength normal: LUE, RUE, LLE, RLE Sensory: Normal - Psychological Associated symptoms: Normal affect, Normal mood - Skin Skin Temperature: Warm Skin Moisture: Dry Skin Color: Normal Skin irregularity: negative: Rash Course - Re-evaluation Re-evalutation: 11/20/17 12:02 Fentanyl did only lasted 5 minutes for any kind of pain relief. The venous Doppler ultrasound preliminary report is negative. 11/20/17 14:10 Patient needs to leave because she does not want to lose a ride. She refuses and will sign a refusal of treatment for catheter urine I advised her of her risks if she has a urinary tract infection that is untreated then should be can come very sick. The abdominal CT is basically negative there is some free air due to the 2 days ago she does have an a follow-up appointment with OB /SED SPECIAL EDUCATION TEACHER in 2 days on the and she will keep that appointment. Patient states the doctor called in hydrocodone because Percocet was making her too sleepy and she can citrus picker the hydrocodone on her way home. Final venous Doppler ultrasound report is negative 11/20/17 14:12 11/20/17 14:13 - Vital Signs Vital signs: Temp Pulse Resp BP Pulse Ox 98.4 F 77 16 128/69 H 99 11/20/17 14:16 11/20/17 14:16 11/20/17 14:16 11/20/17 14:16 11/20/17 14:16 - Laboratory Result Diagrams: 11/20/17 11:10 11/20/17 11:10 Laboratory results interpreted by me: 11/20/17 11/20/17 11:10 11:10 Hgb 9.0 L Hct 28.7 L MCV 73 L MCH 23.1 L MCHC 31.4 L RDW 20.9 H Eosinophils % 7.5 H Absolute Eosinophils 0.7 H Chloride 109 H Creatinine 0.50 L Total Protein 5.8 L Albumin 3.0 L Discharge - Discharge Clinical Impression: c section abdominal pain Condition: Good Disposition: HOME, SELF-CARE Instructions: Abdominal Pain ([facility]) Additional Instructions: See your doctor on November 22 as planned return to the emergency room if you develop a fever increased pain. Take the hydrocodone for pain Make sure that she have a bowel movement daily Drink plenty of water, 2 liters per day Referrals: BAKARI GREER MD [Primary Care Provider] - 11/22/17
[2017-11-20 11:48] LABS: ALANINE AMINOTRANSFERASE 24 U/L (9-52); ALKALINE PHOSPHATASE 114 U/L (38-126); ANION GAP 6 (5-19); ASPARTATE AMINO TRANSFERASE 18 U/L (14-36); BILIRUBIN,DIRECT 0.2 mg/dL (0.0-0.4); BILIRUBIN,TOTAL 0.2 mg/dL (0.2-1.3); BLOOD UREA NITROGEN 9 mg/dL (7-20); CALCIUM 9.1 mg/dL (8.4-10.2); CARBON DIOXIDE 26 mmol/L (22-30); CHLORIDE 109 mmol/L (98-107); GLUCOSE 82 mg/dL (75-110); LIPASE 58.4 U/L (23-300); POTASSIUM 4.2 mmol/L (3.6-5.0); SODIUM 140.9 mmol/L (137-145); TOTAL PROTEIN 5.8 g/dL (6.3-8.2)
--- NOTE | 2017-11-20 12:28 | RADIOLOGY REPORT (SQ) ---
EXAM DESCRIPTION: VENOUS UNILATERAL LOWER COMPLETED DATE/TIME: 11/20/2017 12:16 pm REASON FOR STUDY: R leg swelling after csection; eval DVT COMPARISON: None. TECHNIQUE: Dynamic and static soni scale and color images acquired of the right leg venous system. S elected spectral images acquired with additional compression and augmentation maneuvers. The contrala teral common femoral vein and saphenofemoral junction were also imaged. Images stored on PACS. LIMITATIONS: None. FINDINGS: COMMON FEMORAL: Normal phasicity, compression and augmentation. No visualized echogenic ma terial on soni scale. No defects on color images. FEMORAL: Normal compression and augmentation. No visualized echogenic material on soni scale. No defe cts on color images. POPLITEAL: Normal compression, augmentation. No visualized echogenic material on soni scale. No defec ts on color images. CALF VESSELS: Normal compression, augmentation. No visualized echogenic material on soni scale. No de fects on color images. GSV and SSV: Normal compression, augmentation. No visualized echogenic material on soni scale. No def ects on color images. ANY DEEP VENOUS INSUFFICIENCY: Not evaluated. ANY EVIDENCE OF POPLITEAL CYST: No. OTHER: No other significant finding. CONTRALATERAL COMMON FEMORAL VEIN AND SAPHENOFEMORAL JUNCTION: Normal phasicity, compression and augmentation. No visualized echogenic material on soni scale. No de fects on color images. IMPRESSION: NO EVIDENCE DVT OR SVT IN THE RIGHT LEG. TECHNICAL DOCUMENTATION: JOB ID: [id number] [employer]- All Rights Reserved Reading location - IP/workstation name: [facility]
[2017-11-20] MEDS ORDERED: MORPHINE SULFATE 10 MG/ML INJ IV ONE (13:41)
--- NOTE | 2017-11-20 13:48 | RADIOLOGY REPORT (SQ) ---
EXAM DESCRIPTION: CT ABD/PELVIS WITH IV ONLY COMPLETED DATE/TIME: 11/20/2017 1:26 pm REASON FOR STUDY: RLQ pain after Csection; eval appendicitis infxn COMPARISON: 04/12/2015 TECHNIQUE: CT scan of the abdomen and pelvis performed using helical scanning technique with dynamic intravenous contrast injection. No oral contrast. Images reviewed with lung, soft tissue, and bone windows. Reconstructed coronal and sagittal MPR images reviewed. Delayed images for evaluation of the urinary system also acquired. All images stored on PACS. All CT scanners at this facility use dose modulation, iterative reconstruction, and/or weight based d osing when appropriate to reduce radiation dose to as low as reasonably achievable (ALARA). [facility]: Dose Right [facility]: CareDose [facility]: Dose Right [facility]: Teradose 4D [facility]: [employer] CONTRAST TYPE AND DOSE: contrast/concentration: Isovue 370.00 mg/ml; Total Contrast Delivered: 91.0 ml; Total Saline Delivered: 71.0 ml RENAL FUNCTION: GFR > 60. RADIATION DOSE: CT Rad equipment meets quality standard of care and radiation dose reduction techniq ues were employed. CTDIvol: 13.8 - 18.2 mGy. DLP: 2641 mGy-cm.. LIMITATIONS: No oral contrast. FINDINGS: LOWER CHEST: No significant findings. No nodules or infiltrates. LIVER: Normal size. No masses. No dilated ducts. SPLEEN: Normal size. No focal lesions. PANCREAS: No masses. No significant calcifications. No adjacent inflammation or peripancreatic fluid collections. Pancreatic duct not dilated. GALLBLADDER: Surgically absent. ADRENAL GLANDS: No significant masses or asymmetry. RIGHT KIDNEY AND URETER: No solid masses. No significant calcifications. No hydronephrosis or hyd roureter. LEFT KIDNEY AND URETER: No solid masses. No significant calcifications. No hydronephrosis or hydr oureter. AORTA AND VESSELS: No aneurysm. No dissection. Renal arteries, SMA, celiac without stenosis. RETROPERITONEUM: No retroperitoneal adenopathy, hemorrhage or masses. BOWEL AND PERITONEAL CAVITY: Free air in the right lower quadrant status post 11/16/2017. N o organized fluid collection. No significant ascites. APPENDIX: Normal. PELVIS: See above. ABDOMINAL WALL: No masses. No hernias. BONES: No acute findings. OTHER: No other significant finding. IMPRESSION: Postsurgical changes in the pelvis. No evidence of appendicitis or abscess. TECHNICAL DOCUMENTATION: JOB ID: [id number] Quality ID # [id number]: Final reports with documentation of one or more dose reduction techniques (e.g., Au tomated exposure control, adjustment of the mA and/or kV according to patient size, use of iterative reconstruction technique) 2010 [employer]- All Rights Reserved Reading location - IP/workstation name: ON LICENSE OF [facility]
[2017-11-20 14:19] VITALS: BP 128/69
== END 2017-11-20 14:25 | disposition home or self-care (01) ==
LOC: ER 09:34
DX: O99.355 Diseases of the nervous system complicating the puerperium (principal); G89.18 Other acute postprocedural pain; R10.9 Unspecified abdominal pain; O99.335 Smoking (tobacco) complicating the puerperium; O99.53 Diseases of the respiratory system complicating the puerperium; J45.909 Unspecified asthma, uncomplicated; O90.89 Other complications of the puerperium, not elsewhere classified; Z87.892 Personal history of anaphylaxis; Z88.6 Allergy status to analgesic agent; Z88.0 Allergy status to penicillin; Z88.5 Allergy status to narcotic agent; Z53.29 Procedure and treatment not carried out because of patient's decision for other reasons
CPT/HCPCS: 96376; 99284; 96361; 96374; 96375; 36415; 83690; 85025; 80053; 93971; 74177; J3010; J2270; J7030